=== PATIENT | female | born 1990 | race Caucasian/White ===

== ENCOUNTER 2022-05-24 10:15 | Inpatient (IN) ==
[2022-05-24] MEDS ORDERED: IOPAMIDOL 100 ML BOTTLE IV ONE (10:16)
[2022-05-24] MEDS ORDERED: ONDANSETRON 4 MG/2 ML VIAL IV ONE ×2 (10:23→12:29)
[2022-05-24] MEDS ORDERED: 0.9 % SODIUM CHLORIDE 1,000 ML IV ONE (10:23)
[2022-05-24] MEDS ORDERED: POTASSIUM CHLORIDE 40 MEQ in DEXTROSE 5% IN WATER 500 ML IV ONE (10:44)
[2022-05-24] MEDS ORDERED: POTASSIUM CHLORIDE 20 MEQ TABLET PO ONE (10:44)
[2022-05-24 10:48] LABS: POC Calcium, Ionized 1.03 (1.16-1.32); POC Creatinine 0.8 (0.6-1.2); POC Potassium 2.1 (3.3-5.1)
--- NOTE | 2022-05-24 11:09 | Emergency Department Note ---
Nausea/Vomiting/Diarrhea HPI General Chief complaint: Nausea/Vomiting/Diarrhea Stated complaint: N, V, back pain Time Seen by Provider: 05/24/22 10:18 Source: patient Mode of arrival: ambulatory Limitations: no limitations History of Present Illness HPI Narrative: Narrative: Patient presents ED with complaints of nausea and vomiting x10 days. Patient that she has a history of gastroparesis and she thought it was that which is why she did not go to her PCP. She reports that she has been taking Zofran with no relief of symptoms. She also reports having diarrhea x5 days with about 3 loose stools a day. She is also reporting some lower abdominal pain that has been going on for 7 days. She also reports some back pain And feeling weak.. Overall pain is rated 7/10. She denies fever, chills, shortness of breath, cardiac chest pain, heart palpitations, hematemesis, melena, hematochezia, dysuria, hematuria, urinary frequency, flank pain. She reports she has a history of a tubal ligation so she cannot be . Patient also states she is a multiple a day every day a week marijuana smoker. She also reports history of gastroparesis. Patient denies any other alleviating or aggravating factors. Related Data Home Medications Medication Instructions Recorded Confirmed famotidine 40 mg tablet 40 mg PO QHS 09/03/21 05/24/22 omeprazole 20 mg capsule,delayed 20 mg PO QDAY 09/03/21 05/24/22 release mirtazapine 15 mg tablet 15 mg PO HS 10/29/21 05/24/22 ondansetron 4 mg disintegrating 8 mg PO Q6 PRN Nausea 10/29/21 05/24/22 tablet pregabalin 150 mg capsule 150 mg PO TID 05/24/22 05/24/22 topiramate 25 mg tablet (Topamax) 50 mg PO BID 05/24/22 05/24/22 Previous Rx's Medication Instructions Recorded quetiapine 200 mg tablet 200 mg PO HS #30 tabs 01/28/21 lamotrigine 100 mg tablet 100 mg PO QHS #60 tabs 05/02/21 trazodone 150 mg tablet 150 mg PO QHS #30 tabs 05/07/21 hydrocodone 5 mg-acetaminophen 325 1 tab PO Q8H PRN pain #7 tabs 11/19/21 mg tablet Vortex Spacer #1 ea 01/09/22 albuterol sulfate 90 mcg/actuation 2 puff inhalation Q6H PRN 01/26/22 aerosol inhaler shortness of breath or wheezing #8.5 grams Allergies Allergy/AdvReac Type Severity Reaction Status Date / Time coconut Allergy Unknown Itching Verified 01/09/22 09:38 milk Allergy Unknown Nausea Verified 01/09/22 09:38 mushroom Allergy Unknown Hard time Verified 01/09/22 09:38 breathing haloperidol AdvReac Intermediate Agitated Verified 01/09/22 09:38 metoclopramide [From Reglan] AdvReac Intermediate Agitated Verified 01/09/22 09:38 haloperidol Allergy Unknown Climbing Uncoded 01/09/22 09:38 out of skin Review of Systems ROS ROS Narrative: Narrative: All systems ED: reviewed and negative except as stated. PFSH Narrative Patient History Narrative: Narrative: Medical/Surgical/Family History All Active Problems (Updated 05/24/22 @ 13:32 by Everett Laws DO) Acute hypokalemia (Acute) Leukocytosis (Acute) Cannabis hyperemesis syndrome concurrent with and due to cannabis abuse (Acute) Abdominal pain (Acute) COPD exacerbation (Acute) Current every day vaping (Acute) Asthma exacerbation (Acute) Dental infection (Acute) Tobacco use (Chronic) Cough (Chronic) Dyspnea (Chronic) Chronic obstructive pulmonary disease (Chronic) Asthma (Chronic) Acute hypokalemia (Chronic) Nausea & vomiting (Chronic) Cannabis use disorder, moderate, dependence (Chronic) Stimulant use disorder (Chronic) PTSD (post-traumatic stress disorder) (Chronic) Mood disorder (Chronic) Constipation due to opioid therapy (Chronic) Insomnia (Chronic) Back strain (Chronic) Tobacco use disorder (Chronic) Radiculopathy of lumbar region (Chronic) Lumbago (Chronic) Bilateral lower extremity pain (Chronic) Generalized anxiety disorder (Chronic) Lumbar back pain (Chronic) Rib pain (Chronic) Chest wall pain, chronic (Chronic) Abdominal pain, LUQ (Chronic) Complex regional pain syndrome type II of left lower limb (Chronic) Leukocytosis (Chronic) Calcaneal spur, left (Chronic) Kidney stones (Chronic) Migraines (Chronic) Depression with anxiety (Chronic) Bipolar disorder (Chronic) Plantar fasciitis (Chronic) Tachycardia (Chronic) Hepatic steatosis (Chronic) GERD (gastroesophageal reflux disease) (Chronic) Obesity (BMI 30.0-34.9) (Chronic) Vaginal bleeding (Chronic) Ovarian cyst (Chronic) Hearing loss (Chronic) Exercise-induced asthma (Chronic) Right shoulder pain (Chronic) Costochondritis (Chronic) Persistent recurrent vomiting (Chronic) Rib pain on left side (Chronic) Left foot pain (Chronic) Chronic pain (Chronic) Medical History Abdominal pain, LUQ Acute hypokalemia Asthma Back strain Bilateral lower extremity pain Bipolar disorder Blood on toilet paper Calcaneal spur, left Refer to podiatry Cannabis use disorder, moderate, dependence Chest wall pain, chronic Chronic obstructive pulmonary disease Chronic pain Complex regional pain syndrome type II of left lower limb Constipation due to opioid therapy Costochondritis Depression with anxiety Diarrhea Exercise-induced asthma GERD (gastroesophageal reflux disease) Hearing loss Hepatic steatosis on CT 03-07-2019 History of methadone use Quit 2012 Insomnia Kidney stones x3 removed largest 9mm; seen by urology in [place]. WAS on topiramate (can predispose) - quit approx 2 wks previous to 03-07-2019. Left foot pain Leukocytosis Lumbago Lumbar back pain Migraines Mood disorder Morbid obesity Nausea & vomiting Obesity (BMI 30.0-34.9) Otitis media Ovarian cyst Persistent recurrent vomiting Plantar fasciitis PTSD (post-traumatic stress disorder) Radiculopathy of lumbar region Rib pain on left side Right shoulder pain Stimulant use disorder Tachycardia Patient reports is chronic; causes uncertain or unknown to her... 03/07/2019 Tobacco use disorder Quit 04/2020 Restarted 08/28 Vaginal bleeding Vaginal pain Viral syndrome Weakness of right lower extremity Surgical History History of cholecystectomy (~2021) History of shoulder surgery right History of surgery right Exploratory surgery History of surgical procedure Kidney stone removal, 4 times ureterorenoscopy with fragmentation and removal of calculus of kidney History of tubal ligation 06/2020 tubal removal and nexplanon removal Family History Mother Migraines Heart problem Arthritis Hypertensive disorder Clotting disorder Thyroid disease Grandmother Cerebrovascular accident Maternal Arthritis Maternal Grandfather Arthritis Paternal Alcohol abuse Paternal Cancer Paternal, Maternal Cerebrovascular accident Paternal, Maternal DM (diabetes mellitus) Paternal Heart problem Maternal Clotting disorder Father Depressive disorder Social History Smoking Status: Former smoker and Smokeless tobacco Alcohol Intake Frequency: does not drink Substance Use: marijuana Exam Narrative Narrative: Narrative: General Limitations: no limitations General appearance: Absent in distress ENT ENT: Present normal oropharynx and mucous membranes dry Neck Neck: Present normal inspection; Absent meningismus Respiratory Respiratory: Present normal lung sounds bilaterally; Absent respiratory distress Cardiovascular Cardiovascular: Present normal rhythm and tachycardia Adbominal Abdominal: Present soft, tenderness and normal bowel sounds Expanded Abdominal Abdominal Tenderness: Present RLQ and LLQ Back Back: Present L-S tenderness; Absent CVA tenderness (R) or CVA tenderness (L) Neurological Neurological: Present oriented X3 and normal gait Psychiatric Psychiatric: Present normal affect and normal mood Skin Skin: Present warm (WNL) and intact Course Course Course Narrative: Patient was evaluated for complaints of nausea and vomiting as well as diarrhea and abdominal pain. Patient was tachycardic upon arrival so an EKG was obtained and showed normal sinus rhythm with some PVCs. Urine was obtained and concerning for UTI. Labs were obtained and show the patient had elevated white cell count with leukocytosis. As mentioned she was tachycardic she does meet sepsis criteria. Blood cultures were obtained and patient was given IV fluids as well as IV Rocephin. Patient was given IV Zofran for her nausea and vomiting. Labs also showed that patient was severely hypokalemia with a potassium of 2.1. We will try to give her some oral replacement but patient vomited back up. K rider IV was ordered and is currently running. Patient complained of abdominal pain and she did have some tenderness to palpation in lower abdomen so CT of the abdomen pelvis obtained with image reviewed myself with no acute intra-abdominal findings. There were no sounds of small bowel obstruction or diverticulitis which were considered but ruled out with a CT. Patient is nausea by most likely secondary to her cannabis use which she uses daily. Patient's abdominal pain did not improve with the IV Toradol so she was given some IV morphine and her pain was better controlled. Due to her severe hypokalemia recommend the patient be admitted to the hospitalist service. Case discussed with hospitalist who has agreed to admit the patient. Reevaluation(s) Reevaluation #1: Patient remains hemodynamic stable. No new complaints at this time. Time: 11:20 Consultations Consultation #1: Case discussed with hospitalist, Dr. Yip, who has agreed to admit the p atient Time: 13:25 Vital Signs Vital signs: Vital Signs Temperature 96.9 F L 05/24/22 10:18 Pulse Rate 106 H 05/24/22 10:18 Respiratory Rate 20 05/24/22 10:18 Blood Pressure 117/80 05/24/22 10:18 Pulse Oximetry (%) 97 05/24/22 10:18 Oxygen Delivery Method Room Air 05/24/22 10:18 Temperature 98.0 F 05/24/22 11:00 Pulse Rate 100 H 05/24/22 13:07 Respiratory Rate 19 05/24/22 13:07 Blood Pressure 100/64 05/24/22 13:03 Pulse Oximetry (%) 100 05/24/22 13:07 Oxygen Delivery Method Room Air 05/24/22 13:03 MDM MDM Narrative Medical decision making narrative: Narrative: Differential Diagnosis Differential Diagnosis: Dehydration, viral illness, electrolyte imbalance Medical Records Medical records reviewed: Yes I reviewed the patient's medical records. Lab Data Lab results reviewed: Yes I reviewed the patient's lab results. 05/24/22 10:34 Labs: Lab Results 05/24/22 05/24/22 05/24/22 Range/Units 10:05 10:34 10:34 WBC 16.4 H (4.5-11.0) K/mcL RBC 5.11 (3.59-5.38) M/mcL Hgb 15.8 H (11.2-15.7) g/dL Hct 44.2 (34.1-44.9) % POC Hct (36-48) MCV 86.5 (80.0-100.0) fL MCH 30.9 (26.0-34.0) pg MCHC 35.7 (31.0-36.0) g/dL RDW 12.3 (11.5-14.5) % Plt Count 335 (140-440) K/mcL MPV 10.4 (8.8-12.5) fL Immature Gran % (Auto) 0.4 (0.0-0.5) % Neut % (Auto) 67.3 (38.0-78.0) % Lymph % (Auto) 24.9 (15.5-49.0) % Potter % (Auto) 6.3 (1.0-12.0) % Eos % (Auto) 0.7 (0.0-7.0) % Baso % (Auto) 0.4 (0.0-2.0) % Lymph # (Auto) 4.08 (1.50-4.80) K/mcL Potter # (Auto) 1.03 H (0.10-0.90) K/mcL Eos # (Auto) 0.11 (0.00-0.70) K/mcL Baso # (Auto) 0.06 (0.00-0.30) K/mcL Immature Gran # 0.07 H (0.00-0.05) K/mcl Absolute Neutrophils 11.02 H (1.80-8.00) K/mcL POC VBG pH (7.32-7.42) POC VBG pCO2 at Temp (41-51) POC VBG pO2 (25-40) POC VBG HCO3 (24-28) POC VBG Total CO2 (25-29) POC Venous O2 Sat (40-70) POC VBG Base Excess (-2-2) VBG Lactic Acid (0.5-2) POC Sodium (133-145) POC Potassium (3.3-5.1) POC Chloride (96-108) POC Total CO2 (22-30) POC BUN (6-20) POC Creatinine (0.6-1.2) POC Glucose (70-105) POC WB Ioniz Calcium (1.16-1.32) Magnesium (1.6-2.5) mg/dL Total Bilirubin 0.6 (0.1-1.0) mg/dL Direct Bilirubin < 0.2 (0-0.3) mg/dL AST 20 (<32) U/L ALT 21 (<40) U/L Alkaline Phosphatase 89 (39-117) U/L Total Protein 7.8 (5.9-8.4) gm/dL Albumin 5.2 (3.2-5.2) gm/dL Globulin 2.6 (2.2-3.7) gm/dL Urine Color Amie Urine Appearance Cloudy A (Clear) Urine pH 7.0 (5.0-9.0) Ur Specific [place] 1.032 (1.000-1.035) Urine Protein >=500 A (Negative) mg/dL Urine Glucose (UA) Negative (Negative) mg/dL Urine Ketones 20 A (Negative) mg/dL Urine Occult Blood Negative (Negative) mg/dL Urine Nitrate Negative (Negative) Urine Bilirubin Negative (Negative) mg/dL Urine Urobilinogen 2.0 A mg/dL Ur Leukocyte Esterase 75 A (Negative) /uL Urine RBC 7 H (0-3) /hpf Urine WBC 73 H (0-4) /hpf Ur Squamous Epith Cells 99 H (0-4) /hpf Ur Transition Epith Cell 1 (0-2) /hpf Urine Bacteria Few A (0) /hpf Hyaline Casts 375 H (0-2) /lph Urine Mucus Many A (None) /hpf Ur Culture Indicated? No 05/24/22 05/24/22 05/24/22 Range/Units 10:34 10:35 10:42 WBC (4.5-11.0) K/mcL RBC (3.59-5.38) M/mcL Hgb (11.2-15.7) g/dL Hct (34.1-44.9) % POC Hct 51.0 H (36-48) MCV (80.0-100.0) fL MCH (26.0-34.0) pg MCHC (31.0-36.0) g/dL RDW (11.5-14.5) % Plt Count (140-440) K/mcL MPV (8.8-12.5) fL Immature Gran % (Auto) (0.0-0.5) % Neut % (Auto) (38.0-78.0) % Lymph % (Auto) (15.5-49.0) % Potter % (Auto) (1.0-12.0) % Eos % (Auto) (0.0-7.0) % Baso % (Auto) (0.0-2.0) % Lymph # (Auto) (1.50-4.80) K/mcL Potter # (Auto) (0.10-0.90) K/mcL Eos # (Auto) (0.00-0.70) K/mcL Baso # (Auto) (0.00-0.30) K/mcL Immature Gran # (0.00-0.05) K/mcl Absolute Neutrophils (1.80-8.00) K/mcL POC VBG pH 7.50 H (7.32-7.42) POC VBG pCO2 at Temp 30.7 L (41-51) POC VBG pO2 49 H (25-40) POC VBG HCO3 24.1 (24-28) POC VBG Total CO2 25.0 (25-29) POC Venous O2 Sat 88.0 H (40-70) POC VBG Base Excess 1.0 (-2-2) VBG Lactic Acid 1.9 (0.5-2) POC Sodium 138 (133-145) POC Potassium 2.1 L* (3.3-5.1) POC Chloride 99 (96-108) POC Total CO2 22.0 (22-30) POC BUN 7 (6-20) POC Creatinine 0.8 (0.6-1.2) POC Glucose 146 H (70-105) POC WB Ioniz Calcium 1.03 L (1.16-1.32) Magnesium 1.9 (1.6-2.5) mg/dL Total Bilirubin (0.1-1.0) mg/dL Direct Bilirubin (0-0.3) mg/dL AST (<32) U/L ALT (<40) U/L Alkaline Phosphatase (39-117) U/L Total Protein (5.9-8.4) gm/dL Albumin (3.2-5.2) gm/dL Globulin (2.2-3.7) gm/dL Urine Color Urine Appearance (Clear) Urine pH (5.0-9.0) Ur Specific [place] (1.000-1.035) Urine Protein (Negative) mg/dL Urine Glucose (UA) (Negative) mg/dL Urine Ketones (Negative) mg/dL Urine Occult Blood (Negative) mg/dL Urine Nitrate (Negative) Urine Bilirubin (Negative) mg/dL Urine Urobilinogen mg/dL Ur Leukocyte Esterase (Negative) /uL Urine RBC (0-3) /hpf Urine WBC (0-4) /hpf Ur Squamous Epith Cells (0-4) /hpf Ur Transition Epith Cell (0-2) /hpf Urine Bacteria (0) /hpf Hyaline Casts (0-2) /lph Urine Mucus (None) /hpf Ur Culture Indicated? EKG Data EKG #1: EKG attestation: Yes I reviewed and interpreted this EKG. EKG shows normal: sinus rhythm Rate: normal Rhythm: NSR and PVC's Eidson/QRS: normal P waves: LAE Heart block present: None ST segment elevation in: None ST segment depression in: None QTc: normal QRS morphology: Present normal Interpretation: no acute changes Core Measures AMI Core Measures Followed: Yes Discharge Plan Patient/Caregiver Discharge Instructions Pt seen by [facility]/PA only: No Clinical Impression: Acute hypokalemia, Leukocytosis, Cannabis hyperemesis syndrome concurrent with and due to cannabis abuse, Abdominal pain Patient Disposition: Xfer As Outpt/Obs ([facility]) Condition: Fair Follow up with: Beata Damon NP-C [Primary Care Provider] - Prescriptions: No Action quetiapine 200 mg tablet 200 mg PO HS Qty: 30 2RF Rx Instructions: TAKE ONE TABLET BY MOUTH AT BEDTIME DAILY lamotrigine 100 mg tablet 100 mg PO QHS Qty: 60 0RF trazodone 150 mg tablet 150 mg PO QHS Qty: 30 2RF albuterol sulfate 90 mcg/actuation HFA aerosol inhaler 2 puff inhalation Q6H PRN (Reason: shortness of breath or wheezing) Qty: 8.5 12RF Trelegy Ellipta 200-62.5-25 mcg blister with device 1 inh inhalation QDAY 0RF omeprazole 20 mg capsule,delayed release(DR/EC) 20 mg PO QDAY famotidine 40 mg tablet 40 mg PO QHS mirtazapine 15 mg tablet 15 mg PO HS ondansetron 4 mg tablet,disintegrating 8 mg PO Q6 PRN (Reason: Nausea) (DME) Vortex Spacer See Rx Instructions .ROUTE .MEDSUPPLY Qty: 1 0RF Rx Instructions: As directed hydrocodone-acetaminophen 5-325 mg tablet 1 tab PO Q8H PRN (Reason: pain) Qty: 7 0RF topiramate [Topamax] 25 mg tablet 50 mg PO BID pregabalin 150 mg capsule 150 mg PO TID
[2022-05-24 11:17] LABS: Basophils # (Auto) 0.06 K/mcL (0.00-0.30); Basophils % (Auto) 0.4 % (0.0-2.0); Eosinophils # (Auto) 0.11 K/mcL (0.00-0.70); Eosinophils % (Auto) 0.7 % (0.0-7.0); Hematocrit 44.2 % (34.1-44.9); Hemoglobin 15.8 g/dL (11.2-15.7); Lymphocytes # (Auto) 4.08 K/mcL (1.50-4.80); Lymphocytes % (Auto) 24.9 % (15.5-49.0); Mean Cell Volume 86.5 fL (80.0-100.0); Mean Corpuscular HGB Conc 35.7 g/dL (31.0-36.0); Mean Platelet Volume 10.4 fL (8.8-12.5); Monocytes # (Auto) 1.03 K/mcL (0.10-0.90); Monocytes % (Auto) 6.3 % (1.0-12.0); Neutrophils % (Auto) 67.3 % (38.0-78.0); Platelet Count 335 K/mcL (140-440); RBC 5.11 M/mcL (3.59-5.38); Red Cell Distribution Width 12.3 % (11.5-14.5); WBC 16.4 K/mcL (4.5-11.0)
[2022-05-24] MEDS ORDERED: KETOROLAC 30 MG/ML VIAL IV ONE (11:31)
[2022-05-24 11:39] LABS: ALT/SGPT 21 U/L (<40); AST/SGOT 20 U/L (<32); Albumin 5.2 gm/dL (3.2-5.2); Alkaline Phosphatase 89 U/L (39-117); Bilirubin,Direct < 0.2 mg/dL (0-0.3); Bilirubin,Total 0.6 mg/dL (0.1-1.0); Globulin 2.6 gm/dL (2.2-3.7)
[2022-05-24 12:22] LABS: Appearance,Urine CLOUDY (Clear); Bacteria,Urine FEW /hpf (0); Bilirubin,Urine Negative (Negative); Color,Urine AMBER; Culture Indicated,Urine No; Glucose,Urine (UA) Negative (Negative); Ketones,Urine 20 mg/dL (Negative); Leukocyte Esterase,Urine 75 /uL (Negative); Mucus,Urine MANY /hpf; Nitrate,Urine Negative (Negative); Protein,Urine >=500 mg/dL (Negative); Specific Gravity,Urine 1.032 (1.000-1.035); Urine Blood Negative (Negative); Urine Hyaline Cast 375 /lph (0-2); Urine RBC 7 /hpf (0-3); Urine Squamous Epithelial Cell 99 /hpf (0-4); Urine Transitional Epi Cells 1 /hpf (0-2); Urine WBC 73 /hpf (0-4)
[2022-05-24] MEDS ORDERED: cefTRIAXone 2 GM in DEXTROSE 5% IN WATER 50 ML IV ONE (12:29)
--- NOTE | 2022-05-24 12:51 | Cat Scan Report ---
CLINICAL INFORMATION: Abdominal pain COMPARISON: Abdomen and pelvic CT 10/24/2020. TECHNIQUE: Following enteric contrast, 80 cc of Isovue-370 were injected intravenously, and 60 seconds later, 0.625 mm helical slices were obtained from the mid heart through the subtrochanteric regions. Following reconstruction, 2.5 mm sagittal, coronal and axial reformatted images were processed and reviewed at bone, lung and soft tissue windows. Five minutes later, 0.625 mm helical slices were obtained from the mid heart through the kidneys and viewed at soft tissue windows.The exam was performed using radiation dose optimization techniques including, but not limited to, automated exposure control, adjustment of the mA and/or kV according to patient size and use of iterative reconstruction technique. FINDINGS: The lung bases are clear. No effusions. The visualized heart is grossly normal. Abdominal images show mild fatty change within the liver but no focal hepatic lesion. The gallbladder and bile ducts, both kidneys, adrenal glands, spleen, pancreas and aorta, including aortic branches, are normal in size, configuration and attenuation without focal lesion. There is no free air, free fluid or adenopathy. Pelvic images show normal urinary bladder. Uterus and both ovaries are normal in size, configuration and attenuation. 11 mm simple cyst is seen on the right ovary. The stomach, small bowel, inferior pericecal appendix and large bowel are grossly normal. Bone windows show no osseous abnormality IMPRESSION: Mild stable fatty change within the liver. No acute findings Interpreted and Authenticated by: Taz Byrd 05/24/22
--- NOTE | 2022-05-24 13:22 | XRay Report ---
CLINICAL INFORMATION: Cough COMPARISON: 12/01/2021 TECHNIQUE: Portable FINDINGS: The heart size, mediastinum and pulmonary vessels are unremarkable. The lungs are clear. There are no effusions. The bones and soft tissues are within normal limits. IMPRESSION: Normal chest. Interpreted and Authenticated by: Taz Byrd 05/24/22
[2022-05-24] MEDS ORDERED: morphine 2 MG/ML VIAL IV ONE ×2 (13:29→16:07)
--- NOTE | 2022-05-24 13:41 | Internal Med History&Physical ---
HPI History of Present Illness Patient information: Note initiated : 05/24/22 at 1:30 pm Service Date, if different from initiated Date: [] Patient: Eunice Griffin 31 y/o F admitted on for N, V, back pain. Chief Complaint: [] History of present illness: Ms. Griffin is a 31 year old F Presents to the ER with nausea vomiting diarrhea. She has had nausea vomiting for about 10 days and diarrhea for about a week. Patient has a history of gastroparesis cyclic vomiting syndrome as well as daily marijuana use. She says she is refrain from marijuana to see if it would make a difference with her vomiting but she says it did not make a difference. In the ER her potassium was 2.1 and she was given first oral to placement to see if she would tolerate it but she vomited up. And she was given IV replacement. Her urine was concerning for infection and thus cultures and antibiotics were obtained. She has not had any diarrhea since the ED. She has her last episode of diarrhea was this morning and it was a white-yellow watery fluid. She has some lower quadrant abdominal pain which is crampy. She also complains planes of alternating sweats and chills Flu and COVID were negative in the ED. Patient felt it was her gastroparesis as it started similar but lasted longer than her typical timeframe and thus she came into the ED. She quit smoking 6 months ago but vapes now. Review of Systems: Pertinent positives as above. Denies headache/fever//chest pain/cough/dyspnea/. Remaining 10 point review of system reviewed negative PHYSICAL EXAM General: Alert, Awake, No acute Distress, obese Eyes/N/T: EOMI, no scleral icterus, PERRL, MM Head/Neck: neck supple, full ROM, normocephalic atraumatic CV: Mildly tacky but regular , No murmurs, normal s1/s2 Pulm: Clear b/l, no wheezing/rhonchi/rales, no respiratory distress Abd: soft, nontender, +BS x4 Ext: no clubbing/cyanosis/edema, nontender Neuro: Alert, no focal deficits, moves all extremities, CN 2-12 grossly intact, sensations intact b/l upper/lower Psychiatric: Skin: warm/dry, normal color PFSH PFSH All Active Problems (Updated 05/24/22 @ 13:32 by Everett Laws DO) Acute hypokalemia (Acute) Leukocytosis (Acute) Cannabis hyperemesis syndrome concurrent with and due to cannabis abuse (Acute) Abdominal pain (Acute) COPD exacerbation (Acute) Current every day vaping (Acute) Asthma exacerbation (Acute) Dental infection (Acute) Tobacco use (Chronic) Cough (Chronic) Dyspnea (Chronic) Chronic obstructive pulmonary disease (Chronic) Asthma (Chronic) Acute hypokalemia (Chronic) Nausea & vomiting (Chronic) Cannabis use disorder, moderate, dependence (Chronic) Stimulant use disorder (Chronic) PTSD (post-traumatic stress disorder) (Chronic) Mood disorder (Chronic) Constipation due to opioid therapy (Chronic) Insomnia (Chronic) Back strain (Chronic) Tobacco use disorder (Chronic) Radiculopathy of lumbar region (Chronic) Lumbago (Chronic) Bilateral lower extremity pain (Chronic) Generalized anxiety disorder (Chronic) Lumbar back pain (Chronic) Rib pain (Chronic) Chest wall pain, chronic (Chronic) Abdominal pain, LUQ (Chronic) Complex regional pain syndrome type II of left lower limb (Chronic) Leukocytosis (Chronic) Calcaneal spur, left (Chronic) Kidney stones (Chronic) Migraines (Chronic) Depression with anxiety (Chronic) Bipolar disorder (Chronic) Plantar fasciitis (Chronic) Tachycardia (Chronic) Hepatic steatosis (Chronic) GERD (gastroesophageal reflux disease) (Chronic) Obesity (BMI 30.0-34.9) (Chronic) Vaginal bleeding (Chronic) Ovarian cyst (Chronic) Hearing loss (Chronic) Exercise-induced asthma (Chronic) Right shoulder pain (Chronic) Costochondritis (Chronic) Persistent recurrent vomiting (Chronic) Rib pain on left side (Chronic) Left foot pain (Chronic) Chronic pain (Chronic) Medical History Abdominal pain, LUQ Acute hypokalemia Asthma Back strain Bilateral lower extremity pain Bipolar disorder Blood on toilet paper Calcaneal spur, left Refer to podiatry Cannabis use disorder, moderate, dependence Chest wall pain, chronic Chronic obstructive pulmonary disease Chronic pain Complex regional pain syndrome type II of left lower limb Constipation due to opioid therapy Costochondritis Depression with anxiety Diarrhea Exercise-induced asthma GERD (gastroesophageal reflux disease) Hearing loss Hepatic steatosis on CT 03-07-2019 History of methadone use Quit 2012 Insomnia Kidney stones x3 removed largest 9mm; seen by urology in [place]. WAS on topiramate (can predispose) - quit approx 2 wks previous to 03-07-2019. Left foot pain Leukocytosis Lumbago Lumbar back pain Migraines Mood disorder Morbid obesity Nausea & vomiting Obesity (BMI 30.0-34.9) Otitis media Ovarian cyst Persistent recurrent vomiting Plantar fasciitis PTSD (post-traumatic stress disorder) Radiculopathy of lumbar region Rib pain on left side Right shoulder pain Stimulant use disorder Tachycardia Patient reports is chronic; causes uncertain or unknown to her... 03/07/2019 Tobacco use disorder Quit 04/2020 Restarted 08/28 Vaginal bleeding Vaginal pain Viral syndrome Weakness of right lower extremity Surgical History History of cholecystectomy (~2021) History of shoulder surgery right History of surgery right Exploratory surgery History of surgical procedure Kidney stone removal, 4 times ureterorenoscopy with fragmentation and removal of calculus of kidney History of tubal ligation 06/2020 tubal removal and nexplanon removal Family History Mother Migraines Heart problem Arthritis Hypertensive disorder Clotting disorder Thyroid disease Grandmother Cerebrovascular accident Maternal Arthritis Maternal Grandfather Arthritis Paternal Alcohol abuse Paternal Cancer Paternal, Maternal Cerebrovascular accident Paternal, Maternal DM (diabetes mellitus) Paternal Heart problem Maternal Clotting disorder Father Depressive disorder Social History adopted: Yes caregiver/support person: No foster care: No household members: family housing: house lives independently: Yes marital status: education level: high school service: No fci: No occupational status: previously employed occupation: AfterYes occupational exposures/hazards: No pets and animals: Yes pets and animals: dog(s) leisure activities: other hx recent travel: No sexually active: No smoking status: Former smoker and Smokeless tobacco Smokeless tobacco user details: vaping quit status: considering quitting alcohol intake frequency: does not drink substance use type: marijuana counseling given: Yes counseling provided: provider counseling additional history: CBD more than THC MEDS/ALLERGIES Home Medications and Allergies Home Medications Medication Instructions Recorded Confirmed Type quetiapine 200 mg tablet 200 mg PO HS #30 tabs 01/28/21 05/24/22 Rx lamotrigine 100 mg tablet 100 mg PO QHS #60 tabs 05/02/21 05/24/22 Rx trazodone 150 mg tablet 150 mg PO QHS #30 tabs 05/07/21 05/24/22 Rx famotidine 40 mg tablet 40 mg PO QHS 09/03/21 05/24/22 History omeprazole 20 mg capsule,delayed 20 mg PO QDAY 09/03/21 05/24/22 History release mirtazapine 15 mg tablet 15 mg PO HS 10/29/21 05/24/22 History ondansetron 4 mg disintegrating 8 mg PO Q6 PRN Nausea 10/29/21 05/24/22 History tablet hydrocodone 5 mg-acetaminophen 325 1 tab PO Q8H PRN pain #7 tabs 11/19/21 05/24/22 Rx mg tablet Vortex Spacer #1 ea 01/09/22 05/24/22 Rx albuterol sulfate 90 mcg/actuation 2 puff inhalation Q6H PRN 01/26/22 05/24/22 Rx aerosol inhaler shortness of breath or wheezing #8.5 grams pregabalin 150 mg capsule 150 mg PO TID 05/24/22 05/24/22 History topiramate 25 mg tablet (Topamax) 50 mg PO BID 05/24/22 05/24/22 History Allergies Allergy/AdvReac Type Severity Reaction Status Date / Time coconut Allergy Unknown Itching Verified 01/09/22 09:38 milk Allergy Unknown Nausea Verified 01/09/22 09:38 mushroom Allergy Unknown Hard time Verified 01/09/22 09:38 breathing haloperidol AdvReac Intermediate Agitated Verified 01/09/22 09:38 metoclopramide [From Reglan] AdvReac Intermediate Agitated Verified 01/09/22 09:38 haloperidol Allergy Unknown Climbing Uncoded 01/09/22 09:38 out of skin EXAM Constitutional Vitals: Temp Pulse Resp BP Pulse Ox O2 Del Method 98.0 F 100 H 19 100/64 100 Room Air 05/24/22 11:00 05/24/22 13:07 05/24/22 13:07 05/24/22 13:03 05/24/22 13:07 05/24/22 13:03 DATA Data Completed and Pending Labs: Labs from last 24 hours 04/16/23 04/16/23 04/16/23 10:42 10:35 10:35 WBC RBC Hgb Hct POC Hct 51.0 H MCV MCH MCHC RDW Plt Count MPV Immature Gran % (Auto) Neut % (Auto) Lymph % (Auto) [place] % (Auto) Eos % (Auto) Baso % (Auto) Lymph # (Auto) [place] # (Auto) Eos # (Auto) Baso # (Auto) Immature Gran # Absolute Neutrophils POC VBG pH POC VBG pCO2 at Temp POC VBG pO2 POC VBG HCO3 POC VBG Total CO2 POC Venous O2 Sat POC VBG Base Excess VBG Lactic Acid POC Sodium 138 POC Potassium 2.1 L* POC Chloride 99 POC Total CO2 22.0 POC BUN 7 POC Creatinine 0.8 POC Glucose 146 H POC WB Ioniz Calcium 1.03 L Magnesium 1.9 Total Bilirubin Direct Bilirubin AST ALT Alkaline Phosphatase Total Protein Albumin Globulin Procalcitonin Pending Urine Color Urine Appearance Urine pH Ur Specific [place] Urine Protein Urine Glucose (UA) Urine Ketones Urine Occult Blood Urine Nitrate Urine Bilirubin Urine Urobilinogen Ur Leukocyte Esterase Urine RBC Urine WBC Ur Squamous Epith Cells Ur Transition Epith Cell Urine Bacteria Hyaline Casts Urine Mucus Ur Culture Indicated? 05/24/22 05/24/22 05/24/22 10:34 10:34 10:34 WBC 16.4 H RBC 5.11 Hgb 15.8 H Hct 44.2 POC Hct MCV 86.5 MCH 30.9 MCHC 35.7 RDW 12.3 Plt Count 335 MPV 10.4 Immature Gran % (Auto) 0.4 Neut % (Auto) 67.3 Lymph % (Auto) 24.9 [place] % (Auto) 6.3 Eos % (Auto) 0.7 Baso % (Auto) 0.4 Lymph # (Auto) 4.08 [place] # (Auto) 1.03 H Eos # (Auto) 0.11 Baso # (Auto) 0.06 Immature Gran # 0.07 H Absolute Neutrophils 11.02 H POC VBG pH 7.50 H POC VBG pCO2 at Temp 30.7 L POC VBG pO2 49 H POC VBG HCO3 24.1 POC VBG Total CO2 25.0 POC Venous O2 Sat 88.0 H POC VBG Base Excess 1.0 VBG Lactic Acid 1.9 POC Sodium POC Potassium POC Chloride POC Total CO2 POC BUN POC Creatinine POC Glucose POC WB Ioniz Calcium Magnesium Total Bilirubin 0.6 Direct Bilirubin < 0.2 AST 20 ALT 21 Alkaline Phosphatase 89 Total Protein 7.8 Albumin 5.2 Globulin 2.6 Procalcitonin Urine Color Urine Appearance Urine pH Ur Specific [place] Urine Protein Urine Glucose (UA) Urine Ketones Urine Occult Blood Urine Nitrate Urine Bilirubin Urine Urobilinogen Ur Leukocyte Esterase Urine RBC Urine WBC Ur Squamous Epith Cells Ur Transition Epith Cell Urine Bacteria Hyaline Casts Urine Mucus Ur Culture Indicated? 05/24/22 10:05 WBC RBC Hgb Hct POC Hct MCV MCH MCHC RDW Plt Count MPV Immature Gran % (Auto) Neut % (Auto) Lymph % (Auto) [place] % (Auto) Eos % (Auto) Baso % (Auto) Lymph # (Auto) [place] # (Auto) Eos # (Auto) Baso # (Auto) Immature Gran # Absolute Neutrophils POC VBG pH POC VBG pCO2 at Temp POC VBG pO2 POC VBG HCO3 POC VBG Total CO2 POC Venous O2 Sat POC VBG Base Excess VBG Lactic Acid POC Sodium POC Potassium POC Chloride POC Total CO2 POC BUN POC Creatinine POC Glucose POC WB Ioniz Calcium Magnesium Total Bilirubin Direct Bilirubin AST ALT Alkaline Phosphatase Total Protein Albumin Globulin Procalcitonin Urine Color Amie Urine Appearance Cloudy A Urine pH 7.0 Ur Specific [place] 1.032 Urine Protein >=500 A Urine Glucose (UA) Negative Urine Ketones 20 A Urine Occult Blood Negative Urine Nitrate Negative Urine Bilirubin Negative Urine Urobilinogen 2.0 A Ur Leukocyte Esterase 75 A Urine RBC 7 H Urine WBC 73 H Ur Squamous Epith Cells 99 H Ur Transition Epith Cell 1 Urine Bacteria Few A Hyaline Casts 375 H Urine Mucus Many A Ur Culture Indicated? No A/P Narrative A/P Narrative: A: *Hypokalemia, severe: *N/V/D: cyclic vomiting vs gastroparessis vs marijuana hyperemesis *h/o cyclic vominting/Gastroparesis/cannabis use daily *Leukocytosis appears chronic: Likely acute component from N/V *?UTI: *COPD(no home O2): *Obesity: BMI 36, lifestyle modification *GERD: *Fatty liver: *Depression/Anxiety/PTSD/Bipolar *Chronic pain: P: -IV potassium replacement and trend -Antiemetics/capsaicin -repeat clean catch UA -stool studies -NPO, IVF's -home IH's -Continue psych meds -PT/OT -ppx: Lovenox / home ppi Time Spent With Patient Time: Total time spent is greater than 50% in coordination of care (as documented) at patient's floor/unit and/or counseling patient: Initial: Total time with patient: 75 - 90 minutes
[2022-05-24] MEDS ORDERED: IPRATROPIUM/ALBUTEROL 3 ML AMPUL.NEB NEB PRN (15:43)
[2022-05-24] MEDS ORDERED: POTASSIUM CHLORIDE 20 MEQ TABLET PO PRN (15:43)
[2022-05-24] MEDS ORDERED: ACETAMINOPHEN 325 MG TABLET PO PRN (15:43)
[2022-05-24] MEDS ORDERED: MAGNESIUM SULFATE 2 GM/50 ML BAG IV PRN (15:43)
[2022-05-24] MEDS ORDERED: METOCLOPRAMIDE 10 MG/2 ML VIAL IV PRN (15:43)
[2022-05-24] MEDS ORDERED: CAPSAICIN 0.025% CREAM.TOP 60GM TOPICAL PRN (15:43)
[2022-05-24] MEDS ORDERED: ONDANSETRON 4 MG/2 ML VIAL ONE (15:48)
[2022-05-24] MEDS ORDERED: HYDROcodone/APAP 5/325MG TABLET PO ONE (15:50)
[2022-05-24] MEDS: ONDANSETRON 4 MG/2 ML VIAL IV PRN (15:57)
[2022-05-24] MEDS: DEXTROSE 5%-1/2NS 1,000 ML IV SCH (15:58)
[2022-05-24] MEDS: 0.9 % SODIUM CHLORIDE 10 ML SYRINGE IV SCH ×2 (16:11→21:33)
[2022-05-24] MEDS: PREGABALIN 150 MG CAPSULE PO SCH ×2 (16:11→21:32)
[2022-05-24 16:13] LABS: POC Calcium, Ionized 1.09 (1.16-1.32); POC Creatinine 0.7 (0.6-1.2); POC Potassium 2.5 (3.3-5.1)
[2022-05-24] MEDS ORDERED: POTASSIUM CHLORIDE 20 MEQ/10 ML VIAL IV ONE (16:49)
[2022-05-24] MEDS ORDERED: morphine 2 MG/ML VIAL ONE (16:54)
[2022-05-24] MEDS: POTASSIUM CHLORIDE 40 MEQ in DEXTROSE 5% IN WATER 500 ML IV PRN (16:59)
[2022-05-24] MEDS: FAMOTIDINE 20 MG TABLET PO SCH (19:50)
[2022-05-24] MEDS: PROMETHAZINE 25 MG/ML VIAL IV PRN (20:15)
[2022-05-24 20:25] LABS: Appearance,Urine HAZY (Clear); Bilirubin,Urine Negative (Negative); Color,Urine YELLOW; Culture Indicated,Urine No; Glucose,Urine (UA) Negative (Negative); Ketones,Urine Negative (Negative); Leukocyte Esterase,Urine 250 /uL (Negative); Nitrate,Urine Negative (Negative); Protein,Urine Negative (Negative); Specific Gravity,Urine 1.011 (1.000-1.035); Urine Blood Negative (Negative); Urine RBC 5 /hpf (0-3); Urine Squamous Epithelial Cell 27 /hpf (0-4); Urine WBC 3 /hpf (0-4); Urobilinogen,Urine Negative
[2022-05-24] MEDS: TOPIRAMATE 25 MG TABLET PO SCH (21:32)
[2022-05-24] MEDS: MIRTAZAPINE 15 MG TABLET PO SCH (21:32)
[2022-05-24] MEDS: QUEtiapine 100 MG TABLET PO SCH (21:32)
[2022-05-24] MEDS: lamoTRIgine 100 MG TABLET PO SCH (21:32)
[2022-05-24] MEDS: traZODone HCL 150 MG TABLET PO SCH (21:32)
[2022-05-24] MEDS: HYDROcodone/APAP 5/325MG TABLET PO PRN (22:31)
[2022-05-25] MEDS: DEXTROSE 5%-1/2NS 1,000 ML IV SCH (04:43)
[2022-05-25] MEDS: 0.9 % SODIUM CHLORIDE 10 ML SYRINGE IV SCH ×3 (05:59→22:57)
[2022-05-25 06:44] LABS: Hematocrit 37.1 % (34.1-44.9); Hemoglobin 12.9 g/dL (11.2-15.7); Mean Cell Volume 88.8 fL (80.0-100.0); Mean Corpuscular HGB Conc 34.8 g/dL (31.0-36.0); Mean Platelet Volume 10.1 fL (8.8-12.5); Platelet Count 223 K/mcL (140-440); RBC 4.18 M/mcL (3.59-5.38); Red Cell Distribution Width 12.7 % (11.5-14.5); WBC 7.4 K/mcL (4.5-11.0)
[2022-05-25 07:09] LABS: ALT/SGPT 17 U/L (<40); AST/SGOT 19 U/L (<32); Albumin/Globulin Ratio 2.1 (1.0-2.3); Alkaline Phosphatase 65 U/L (39-117); Bilirubin,Direct < 0.2 mg/dL (0-0.3); Bilirubin,Total 0.4 mg/dL (0.1-1.0); Blood Urea Nitrogen 4 mg/dL (6-20); Calcium 8.3 mg/dL (8.6-10.4); Carbon Dioxide 23 mmol/L (22-30); Chloride 105 mmol/L (96-108); Globulin 1.9 gm/dL (2.2-3.7); Glomerular Filtration Rate 97; Glucose 89 mg/dL (70-105); Lactate Dehydrogenase 175 U/L (135-225); Phosphorous 2.7 mg/dL (2.5-4.5); Triglycerides 168 mg/dL (<150); Uric Acid 7.5 mg/dL (2.5-8.0)
--- NOTE | 2022-05-25 07:13 | EKG ---
[facility] Test Date: 2022-05-24 Pat Name: Eunice Griffin Department: ED Room: Gender: Female Rn Traveling: BARI : 1990 Requested By: Everett Laws Order Number: [id number] Reading MD: Taz Dickerson M.D. Measurements Intervals [place] Rate: 94 P: 79 SD: 159 QRS: 75 QRSD: 101 T: 70 QT: 407 QTc: 491 Interpretive Statements Sinus rhythm Ventricular premature complex Probable left atrial enlargement Electronically Signed On 05-25-2022 7:13:17 PDT by Taz Dickerson M.D. /store/M0/[id number]/[id number]
[2022-05-25] MEDS: POTASSIUM CHLORIDE 40 MEQ in DEXTROSE 5% IN WATER 500 ML IV PRN (07:38)
--- NOTE | 2022-05-25 07:45 | Internal Med Progress Note ---
SUBJECTIVE Subjective Patient information: Note initiated : 05/25/22 at 7:40 am Service Date, if different from initiated Date: [] Patient: Eunice Griffin 31 y/o F admitted on 05/24/22 for N, V, back pain. Chief Complaint: [] Interval history: History of present illness: Ms. Griffin is a 31 year old F Presents to the ER with nausea vomiting diarrhea. She has had nausea vomiting for about 10 days and diarrhea for about a week. Patient has a history of gastroparesis cyclic vomiting syndrome as well as daily marijuana use. She says she is refrain from marijuana to see if it would make a difference with her vomiting but she says it did not make a difference. In the ER her potassium was 2.1 and she was given first oral to placement to see if she would tolerate it but she vomited up. And she was given IV replacement. Her urine was concerning for infection and thus cultures and antibiotics were obtained. She has not had any diarrhea since the ED. She has her last episode of diarrhea was this morning and it was a white-yellow watery fluid. She has some lower quadrant abdominal pain which is crampy. She also complains planes of alternating sweats and chills Flu and COVID were negative in the ED. Patient felt it was her gastroparesis as it started similar but lasted longer than her typical timeframe and thus she came into the ED. She quit smoking 6 months ago but vapes now. 05/25 Minimal nausea. No vomiting. No diarrhea since admission. Hypokalemia still present and significant. Leukocytosis likely reactive resolved. Continue potassium repletion and trend. Stool studies still pending. Review of Systems: Pertinent positives as above. Denies headache/fever//chest pain/cough/dyspnea/. PHYSICAL EXAM General: Alert, Awake, No acute Distress, obese Eyes/N/T: EOMI, no scleral icterus, Head/Neck: neck supple, full ROM, CV: RRR, No murmurs, Pulm: Clear b/l, no wheezing/rhonchi/rales, no respiratory distress Abd: soft, nontender, +BS x4 Ext: no clubbing/cyanosis/edema, nontender Neuro: Alert, no focal deficits, moves all extremities, , sensations intact b/l upper/lower Psychiatric: Skin: warm/dry, normal color Constitutional Vitals: Vital Signs Temp Pulse Resp BP Pulse Ox O2 Del Method O2 Flow Rate 97.1 F 72 18 109/71 99 Room Air 0 05/25/22 05:35 05/24/22 20:40 05/25/22 05:35 05/25/22 05:35 05/25/22 05:35 05/25/22 05:35 05/25/22 05:35 Period Temp Pulse Resp BP Sys/Mccall Pulse Ox O2 Del Method O2 Flow Rate Last 24 Hr 96.9 F-98.0 F 72-106 8-28 92-135/56-86 97-100 Room Air-Room Air 0-0 Intake and Output 05/24/22 05/25/22 05/25/22 19:59 03:59 11:59 Intake Total 626 964 5789 Output Total 100 100 Balance 893 023 2016 Weight 79.124 kg 80.331 kg Intake & Output: Intake & Output 05/24/22 05/25/22 05/25/22 19:59 03:59 11:59 Intake Total 623 764 1705 Output Total 100 100 Balance 099 919 8416 Weight 79.124 kg 80.331 kg Intake: IV 542 084 1656 Dextrose 5%-1/2Ns IV Solution 1 1000 ,000 ml @ 84 mls/hr IV .[id number] BILLIE Rx#:[id number] Potassium Chloride 40 Meq In 429 520 Dextrose 5% in Water 500 ml @ 130 mls/hr IV UD PRN Rx#: [id number] Rocephin 2 gm In Dextrose 5% in 50 Water 50 ml @ 100 mls/hr IV ONCE ONE Rx#:[id number] Oral 0 100 Output: Void Amount 100 100 Other: Urine Appearance Clear Clear Urine Color Yellow Yellow OBJ DATA Labs 05/25/22 05:24 05/25/22 05:24 Labs: Abnormal Lab Results 05/25/22 05/24/22 05/24/22 05:24 19:44 16:11 WBC Hgb POC Hct [place] # (Auto) Immature Gran # Absolute Neutrophils POC VBG pH POC VBG pCO2 at Temp POC VBG pO2 POC Venous O2 Sat POC Potassium 2.5 L* Potassium 2.4 L* POC Total CO2 21.0 L POC BUN 5 L BUN 4 L POC Glucose 115 H Calcium 8.3 L POC WB Ioniz Calcium 1.09 L Globulin 1.9 L Triglycerides 168 H Urine Appearance Hazy A Urine Protein Urine Ketones Urine Urobilinogen Ur Leukocyte Esterase 250 A Urine RBC 5 H Urine WBC Ur Squamous Epith Cells 27 H Urine Bacteria Hyaline Casts Urine Mucus 05/24/22 05/24/22 05/24/22 10:42 10:34 10:34 WBC 16.4 H Hgb 15.8 H POC Hct 51.0 H [place] # (Auto) 1.03 H Immature Gran # 0.07 H Absolute Neutrophils 11.02 H POC VBG pH 7.50 H POC VBG pCO2 at Temp 30.7 L POC VBG pO2 49 H POC Venous O2 Sat 88.0 H POC Potassium 2.1 L* Potassium POC Total CO2 POC BUN BUN POC Glucose 146 H Calcium POC WB Ioniz Calcium 1.03 L Globulin Triglycerides Urine Appearance Urine Protein Urine Ketones Urine Urobilinogen Ur Leukocyte Esterase Urine RBC Urine WBC Ur Squamous Epith Cells Urine Bacteria Hyaline Casts Urine Mucus 05/24/22 10:05 WBC Hgb POC Hct [place] # (Auto) Immature Gran # Absolute Neutrophils POC VBG pH POC VBG pCO2 at Temp POC VBG pO2 POC Venous O2 Sat POC Potassium Potassium POC Total CO2 POC BUN BUN POC Glucose Calcium POC WB Ioniz Calcium Globulin Triglycerides Urine Appearance Cloudy A Urine Protein >=500 A Urine Ketones 20 A Urine Urobilinogen 2.0 A Ur Leukocyte Esterase 75 A Urine RBC 7 H Urine WBC 73 H Ur Squamous Epith Cells 99 H Urine Bacteria Few A Hyaline Casts 375 H Urine Mucus Many A Meds: Medications Acetaminophen (Acetaminophen 325 Mg Tablet) 650 mg PO Q6HP PRN; Protocol PRN Reason: Per Pain Protocol/Fever > 101 Hydrocodone Bitart/Acetaminophen (Hydrocodone/Apap 5/325mg Tablet) 1 tab PO Q8H PRN; Protocol PRN Reason: pain Last Admin: 05/24/22 22:31 Dose: 1 tab Albuterol/Ipratropium (Ipratropium/Albuterol 3 Ml Ampul.Neb) 3 ml NEB Q4HP PRN PRN Reason: Shortness Of Breath Capsaicin (Capsaicin 0.025% Cream.Top 60gm) 1 dose TOPICAL QIDP PRN PRN Reason: Muscle Pain Carisoprodol (Carisoprodol 350 Mg Tablet) 350 mg PO TID PRN PRN Reason: Muscle Pain Enoxaparin Sodium (Enoxaparin 40 Mg/0.4 Ml Syringe) 40 mg SQ DAILY [facility] Famotidine (Famotidine 20 Mg Tablet) 40 mg PO QHS [facility] Last Admin: 05/24/22 19:50 Dose: 40 mg Potassium Chloride 40 meq/ (Dextrose) 520 mls @ 130 mls/hr IV UD PRN PRN Reason: Potassium < 3 Last Admin: 05/25/22 07:38 Dose: 130 mls/hr Magnesium Sulfate (Magnesium Sulfate) 2 gm in 50 mls @ 50 mls/hr IV UD PRN PRN Reason: Magnesium </= 1.6 Dextrose/Sodium Chloride (Dextrose 5%-1/2ns Iv Solution) 1,000 mls @ 84 mls/hr IV .[id number] [facility] Stop: 05/25/22 15:31 Last Admin: 05/25/22 04:43 Dose: 84 mls/hr Lamotrigine (Lamotrigine 100 Mg Tablet) 100 mg PO QHS [facility] Last Admin: 05/24/22 21:32 Dose: 100 mg Metoclopramide HCl (Metoclopramide 10 Mg/2 Ml Vial) 10 mg IV Q6HP PRN PRN Reason: Nausea And Vomiting Mirtazapine (Mirtazapine 15 Mg Tablet) 15 mg PO HS [facility] Last Admin: 05/24/22 21:32 Dose: 15 mg Omeprazole (Omeprazole 20 Mg Capsule) 20 mg PO QDAY [facility] Ondansetron HCl (Ondansetron 4 Mg/2 Ml Vial) 4 mg IV Q4HP PRN PRN Reason: Nausea And Vomiting Last Admin: 05/24/22 15:57 Dose: 4 mg Trelegy Ellipta (Inhaler) 1 dose INH QDAY [facility] Potassium Chloride (Potassium Chloride 20 Meq Tablet) 40 meq PO UD PRN PRN Reason: Potssium is 3-3.5 Potassium Chloride (Potassium Chloride 20 Meq Tablet) 40 meq PO UD PRN PRN Reason: Potassium < 3 Pregabalin (Pregabalin 150 Mg Capsule) 150 mg PO TID [facility] Last Admin: 05/24/22 21:32 Dose: 150 mg Promethazine HCl (Promethazine 25 Mg/Ml Vial) 12.5 mg IV Q6HP PRN PRN Reason: Nausea And Vomiting Last Admin: 05/24/22 20:15 Dose: 12.5 mg Quetiapine Fumarate (Quetiapine 100 Mg Tablet) 200 mg PO HS [facility] Last Admin: 05/24/22 21:32 Dose: 200 mg Sodium Chloride (0.9 % Sodium Chloride 10 Ml Syringe) 10 ml IV Q8 [facility] Last Admin: 05/25/22 05:59 Dose: 10 ml Topiramate (Topiramate 25 Mg Tablet) 50 mg PO BID [facility] Last Admin: 05/24/22 21:32 Dose: 50 mg Trazodone HCl (Trazodone Hcl 150 Mg Tablet) 150 mg PO QHS [facility] Last Admin: 05/24/22 21:32 Dose: 150 mg A/P Narrative A/P Narrative: A: *Hypokalemia, severe: *N/V/D: cyclic vomiting vs gastroparessis vs marijuana hyperemesis *h/o cyclic vominting/Gastroparesis/cannabis use daily *Leukocytosis appears chronic: Likely acute component from N/V, improved *?UTI: repeat ua unimpressive *COPD(no home O2): *Obesity: BMI 36, lifestyle modification *GERD: *Fatty liver: *Depression/Anxiety/PTSD/Bipolar *Chronic pain: P: -IV potassium replacement and trend -Antiemetics/capsaicin -stool studies -start clears and advance as tolerated to low fat soluble fiber, d/c ivf's -home IH's -Continue psych meds -PT/OT -ppx: Lovenox / home ppi Time Spent With Patient Time: Total time spent is greater than 50% in coordination of care (as documented) at patient's floor/unit and/or counseling patient: Subsequent: Total time with patient: 50 - 65 Minutes
[2022-05-25] MEDS: PROMETHAZINE 25 MG/ML VIAL IV PRN ×3 (07:50→20:18)
[2022-05-25] MEDS: POTASSIUM CHLORIDE 20 MEQ TABLET PO PRN (08:40)
[2022-05-25] MEDS: PREGABALIN 150 MG CAPSULE PO SCH ×3 (08:40→20:19)
[2022-05-25] MEDS: HYDROcodone/APAP 5/325MG TABLET PO PRN ×2 (08:40→17:19)
[2022-05-25] MEDS: TOPIRAMATE 25 MG TABLET PO SCH ×2 (08:45→20:19)
[2022-05-25] MEDS: ENOXAPARIN 40 MG/0.4 ML SYRINGE SQ SCH (08:45)
[2022-05-25] MEDS: OMEPRAZOLE 20 MG CAPSULE PO SCH (08:46)
[2022-05-25 11:16] LABS: Band Neutrophils % 2 % (0-10); Eosinophils % (Manual) 2 % (0-7); Lymphocytes % 55 % (15-49); Monocytes % (Manual) 8 % (1-12); Platelet Estimate NORMAL (Normal); RBC Morphology NORMAL (Normal); Segmented Neutrophils % 33 % (38-78)
[2022-05-25] MEDS: CARISOPRODOL 350 MG TABLET PO PRN ×2 (12:21→20:19)
[2022-05-25] MEDS: ONDANSETRON 4 MG/2 ML VIAL IV PRN ×2 (12:21→17:19)
--- NOTE | 2022-05-25 13:40 | Discharge Summary ---
Discharge Provider Provider IMPORTANT FOLLOW-UP INFORMATION FOR PCP: -Recommend f/u potassium lab outpt. Patient information: Note initiated : 05/25/22 at 1:39 pm Service Date, if different from initiated Date: [] Patient: Eunice Griffin 31 y/o F admitted on 05/24/22 for N, V, back pain. Chief Complaint: [] Date of admission: 05/24/22 15:19 Discharge date: 05/27/22 Primary care physician: Beata Damon NP Consults: 05/24/22 12:49 Consult to Physician [CONS] Stat Comment: Consulting Provider: Beau Yip Reason For Exam: Physician to Consult COURSE Hospital Course Hospital course: History of present illness: Ms. Griffin is a 31 year old F Presents to the ER with nausea vomiting diarrhea. She has had nausea vomiting for about 10 days and diarrhea for about a week. Patient has a history of gastroparesis cyclic vomiting syndrome as well as daily marijuana use. She says she is refrain from marijuana to see if it would make a difference with her vomiting but she says it did not make a difference. In the ER her potassium was 2.1 and she was given first oral to placement to see if she would tolerate it but she vomited up. And she was given IV replacemen t. Her urine was concerning for infection and thus cultures and antibiotics were obtained. She has not had any diarrhea since the ED. She has her last episode of diarrhea was this morning and it was a white-yellow watery fluid. She has some lower quadrant abdominal pain which is crampy. She also complains planes of alternating sweats and chills Flu and COVID were negative in the ED. Patient felt it was her gastroparesis as it started similar but lasted longer than her typical timeframe and thus she came into the ED. She quit smoking 6 months ago but vapes now. 05/25 Minimal nausea. No vomiting. No diarrhea since admission. Hypokalemia still present and significant. Leukocytosis likely reactive resolved. Continue potassium repletion and trend. Stool studies still pending. 05/26 Potassium still quite low. Improving but slowly. Continue aggressive treatment of follow-up later today and replete again if necessary. Patient had loose stool yesterday but negative for C. difficile or fecal WBCs. Start Imodium. Patient did have some nausea but no vomiting. 05/27 Up to 131 today.Patient continues to feel better. Has seen much improved. No further diarrhea or vomiting. Stable for discharge A: *Hypokalemia, severe: *N/V/D: cyclic vomiting vs gastroparessis vs marijuana hyperemesis *h/o cyclic vominting/Gastroparesis/cannabis use daily *Leukocytosis appears chronic: Likely acute component from N/V, improved *COPD(no home O2): *Obesity: BMI 36, lifestyle modification *GERD: *Fatty liver: *Depression/Anxiety/PTSD/Bipolar *Chronic pain: Discharge diagnosis: Nausea vomiting diarrhea hypokalemia Reason for admission: COPD obesity GERD fatty liver depression anxiety PTSD bipolar chronic pain Time Spent with Patient Time attestation: Total time spent providing and/or coordinating discharge services: Time spent: Greater than 30 minutes EXAM Constitutional Vitals: Temp Pulse Resp BP Pulse Ox O2 Del Method O2 Flow Rate 97.8 F 114 H 14 113/74 95 Room Air 0 05/25/22 11:50 05/25/22 07:49 05/25/22 11:50 05/25/22 11:50 05/25/22 11:50 05/25/22 07:52 05/25/22 05:35 Discharge Data Data Completed and Pending Labs on day of discharge: Labs from last 24 hours 05/25/22 05/25/22 05/24/22 05:24 05:24 19:44 WBC 7.4 RBC 4.18 Hgb 12.9 Hct 37.1 POC Hct MCV 88.8 MCH 30.9 MCHC 34.8 RDW 12.7 Plt Count 223 MPV 10.1 Seg Neutrophils % 33 L Band Neutrophils % 2 Lymphocytes % 55 H Monocytes % (Manual) 8 Eosinophils % (Manual) 2 Platelet Estimate Normal RBC Morphology Normal POC Sodium Sodium 139 POC Potassium Potassium 2.4 L* POC Chloride Chloride 105 Carbon Dioxide 23 POC Total CO2 Anion Gap 11.0 POC BUN BUN 4 L Creatinine 0.8 POC Creatinine GFR Calculation 97 Glucose 89 POC Glucose Uric Acid 7.5 Calcium 8.3 L POC WB Ioniz Calcium Phosphorus 2.7 Magnesium 1.8 Total Bilirubin 0.4 Direct Bilirubin < 0.2 GGT 35 AST 19 ALT 17 Alkaline Phosphatase 65 Lactate Dehydrogenase 175 Total Protein 5.9 Albumin 4.0 Globulin 1.9 L Albumin/Globulin Ratio 2.1 Triglycerides 168 H Procalcitonin Urine Color Yellow Urine Appearance Hazy A Urine pH 8.0 Ur Specific Bath 1.011 Urine Protein Negative Urine Glucose (UA) Negative Urine Ketones Negative Urine Occult Blood Negative Urine Nitrate Negative Urine Bilirubin Negative Urine Urobilinogen Negative Ur Leukocyte Esterase 250 A Urine RBC 5 H Urine WBC 3 Ur Squamous Epith Cells 27 H Urine Bacteria None Ur Culture Indicated? No 05/24/22 05/24/22 16:11 10:35 WBC RBC Hgb Hct POC Hct 39.0 MCV MCH MCHC RDW Plt Count MPV Seg Neutrophils % Band Neutrophils % Lymphocytes % Monocytes % (Manual) Eosinophils % (Manual) Platelet Estimate RBC Morphology POC Sodium 140 Sodium POC Potassium 2.5 L* Potassium POC Chloride 104 Chloride Carbon Dioxide POC Total CO2 21.0 L Anion Gap POC BUN 5 L BUN Creatinine POC Creatinine 0.7 GFR Calculation Glucose POC Glucose 115 H Uric Acid Calcium POC WB Ioniz Calcium 1.09 L Phosphorus Magnesium Total Bilirubin Direct Bilirubin GGT AST ALT Alkaline Phosphatase Lactate Dehydrogenase Total Protein Albumin Globulin Albumin/Globulin Ratio Triglycerides Procalcitonin 0.07 Urine Color Urine Appearance Urine pH Ur Specific Bath Urine Protein Urine Glucose (UA) Urine Ketones Urine Occult Blood Urine Nitrate Urine Bilirubin Urine Urobilinogen Ur Leukocyte Esterase Urine RBC Urine WBC Ur Squamous Epith Cells Urine Bacteria Ur Culture Indicated? Preliminary micro results at discharge 05/24/22 12:45 Blood Culture - Preliminary Blood 05/24/22 12:40 Blood Culture - Preliminary Blood Discharge Plan Patient/Caregiver Discharge Instructions Activity: increase activity as tolerated Diet: Low Fat Instructions: Hypokalemia (GEN), Acute Nausea and Vomiting (GEN) Prescriptions: Continued quetiapine 200 mg tablet 200 mg PO HS Qty: 30 2RF Rx Instructions: TAKE ONE TABLET BY MOUTH AT BEDTIME DAILY lamotrigine 100 mg tablet 100 mg PO QHS Qty: 60 0RF trazodone 150 mg tablet 150 mg PO QHS Qty: 30 2RF albuterol sulfate 90 mcg/actuation HFA aerosol inhaler 2 puff inhalation Q6H PRN (Reason: shortness of breath or wheezing) Qty: 8.5 12RF Trelegy Ellipta 200-62.5-25 mcg blister with device 1 inh inhalation QDAY 0RF omeprazole 20 mg capsule,delayed release(DR/EC) 20 mg PO QDAY famotidine 40 mg tablet 40 mg PO QHS mirtazapine 15 mg tablet 15 mg PO HS ondansetron 4 mg tablet,disintegrating 8 mg PO Q6 PRN (Reason: Nausea) (DME) Vortex Spacer See Rx Instructions .ROUTE .MEDSUPPLY Qty: 1 0RF Rx Instructions: As directed hydrocodone-acetaminophen 5-325 mg tablet 1 tab PO Q8H PRN (Reason: pain) Qty: 7 0RF topiramate [Topamax] 25 mg tablet 50 mg PO BID pregabalin 150 mg capsule 150 mg PO TID carisoprodol 350 mg Tablet 350 mg PO TID PRN (Reason: Muscle Pain) Follow Up Plan Follow up with: Baeta Damon NP-C [Primary Care Provider] - Patient Disposition: Home, Self-Care Prognosis: Fair Overall status at discharge: patient is progressing back to baseline Discharge Orders: Discharge Order (Routine); Ordered 05/27/22 Ordered By: Beau Yip
[2022-05-25] MEDS: lamoTRIgine 100 MG TABLET PO SCH (20:19)
[2022-05-25] MEDS: FAMOTIDINE 20 MG TABLET PO SCH (20:19)
[2022-05-25] MEDS: QUEtiapine 100 MG TABLET PO SCH (20:19)
[2022-05-25] MEDS: MIRTAZAPINE 15 MG TABLET PO SCH (20:19)
[2022-05-25] MEDS: traZODone HCL 150 MG TABLET PO SCH (20:20)
[2022-05-26] MEDS: PROMETHAZINE 25 MG/ML VIAL IV PRN ×4 (02:06→20:07)
[2022-05-26] MEDS: HYDROcodone/APAP 5/325MG TABLET PO PRN ×4 (02:06→21:50)
[2022-05-26] MEDS: 0.9 % SODIUM CHLORIDE 10 ML SYRINGE IV SCH ×3 (06:44→20:08)
[2022-05-26 07:53] LABS: Blood Urea Nitrogen 2 mg/dL (6-20); Calcium 8.6 mg/dL (8.6-10.4); Carbon Dioxide 23 mmol/L (22-30); Chloride 108 mmol/L (96-108); Glomerular Filtration Rate 97; Glucose 77 mg/dL (70-105)
[2022-05-26] MEDS ORDERED: LOPERAMIDE 2 MG CAPSULE PO PRN (07:53)
--- NOTE | 2022-05-26 07:57 | Internal Med Progress Note ---
SUBJECTIVE Subjective Patient information: Note initiated : 05/26/22 at 7:55 am Service Date, if different from initiated Date: [] Patient: Eunice Griffin 31 y/o F admitted on 05/24/22 for N, V, back pain. Chief Complaint: [] Interval history: History of present illness: Ms. Griffin is a 31 year old F Presents to the ER with nausea vomiting diarrhea. She has had nausea vomiting for about 10 days and diarrhea for about a week. Patient has a history of gastroparesis cyclic vomiting syndrome as well as daily marijuana use. She says she is refrain from marijuana to see if it would make a difference with her vomiting but she says it did not make a difference. In the ER her potassium was 2.1 and she was given first oral to placement to see if she would tolerate it but she vomited up. And she was given IV replacement. Her urine was concerning for infection and thus cultures and antibiotics were obtained. She has not had any diarrhea since the ED. She has her last episode of diarrhea was this morning and it was a white-yellow watery fluid. She has some lower quadrant abdominal pain which is crampy. She also complains planes of alternating sweats and chills Flu and COVID were negative in the ED. Patient felt it was her gastroparesis as it started similar but lasted longer than her typical timeframe and thus she came into the ED. She quit smoking 6 months ago but vapes now. 05/25 Minimal nausea. No vomiting. No diarrhea since admission. Hypokalemia still present and significant. Leukocytosis likely reactive resolved. Continue potassium repletion and trend. Stool studies still pending. 05/26 Potassium still quite low. Improving but slowly. Continue aggressive treatment of follow-up later today and replete again if necessary. Patient had loose stool yesterday but negative for C. difficile or fecal WBCs. Start Imodium. Patient did have some nausea but no vomiting. Review of Systems: Pertinent positives as above. Denies headache/fever//chest pain/cough/dyspnea/. PHYSICAL EXAM General: Alert, Awake, No acute Distress, obese Eyes/N/T: EOMI, no scleral icterus, Head/Neck: neck supple, full ROM, CV: RRR, No murmurs, Pulm: Clear b/l, no wheezing/rhonchi/rales, no respiratory distress Abd: soft, nontender, +BS x4 Ext: no clubbing/cyanosis/edema, nontender Neuro: Alert, no focal deficits, moves all extremities, , sensations intact b/l upper/lower Psychiatric: Skin: warm/dry, normal color Constitutional Vitals: Vital Signs Temp Pulse Resp BP Pulse Ox O2 Del Method O2 Flow Rate 97.7 F 82 12 111/56 98 Room Air 0 05/26/22 03:44 05/26/22 03:44 05/26/22 03:44 05/26/22 03:44 05/26/22 03:44 05/26/22 07:44 05/25/22 05:35 Period Temp Pulse Resp BP Sys/Mccall Pulse Ox O2 Del Method O2 Flow Rate Last 24 Hr 97.1 F-98.5 F 82-96 12-16 99-114/56-85 95-100 Room Air-Room Air Intake and Output 05/25/22 05/26/22 05/26/22 19:59 03:59 11:59 Intake Total 1320 680 Output Total 1150 2375 Balance 170 -1695 Weight 81.465 kg Intake & Output: Intake & Output 05/25/22 05/26/22 05/26/22 19:59 03:59 11:59 Intake Total 1320 680 Output Total 1150 2375 Balance 170 -1695 Weight 81.465 kg Intake: IV 520 Dextrose 5%-1/2Ns IV Solution 1 0 ,000 ml @ 84 mls/hr IV .[id number] BILLIE Rx#:[id number] Potassium Chloride 40 Meq In 520 Dextrose 5% in Water 500 ml @ 130 mls/hr IV UD PRN Rx#: [id number] Oral 800 680 Output: Urine Catheter Amount 1000 Void Amount 1150 850 Stool 525 Other: Meal Dinner Percent of Meal Consumed 100% Urine Appearance Cloudy Clear Urine Color Yellow Yellow Stool Color Brown Yellow Stool Consistency Liquid OBJ DATA Labs 05/25/22 05:24 05/26/22 05:51 Labs: Abnormal Lab Results 05/26/22 05/25/22 05/25/22 05:51 05:24 05:24 WBC Hgb POC Hct [facility] [facility] # (Auto) Seg Neutrophils % 33 L Lymphocytes % 55 H Immature Gran # Absolute Neutrophils POC VBG pH POC VBG pCO2 at Temp POC VBG pO2 POC Venous O2 Sat POC Potassium Potassium 2.8 L* 2.4 L* POC Total CO2 POC BUN BUN 2 L 4 L POC Glucose Calcium 8.3 L POC WB Ioniz Calcium Globulin 1.9 L Triglycerides 168 H Urine Appearance Urine Protein Urine Ketones Urine Urobilinogen Ur Leukocyte Esterase Urine RBC Urine WBC Ur Squamous Epith Cells Urine Bacteria Hyaline Casts Urine Mucus 05/24/22 05/24/22 05/24/22 19:44 16:11 10:42 WBC Hgb POC Hct 51.[address] [facility] # (Auto) Seg Neutrophils % Lymphocytes % Immature Gran # Absolute Neutrophils POC VBG pH POC VBG pCO2 at Temp POC VBG pO2 POC Venous O2 Sat POC Potassium 2.5 L* 2.1 L* Potassium POC Total CO2 21.0 L POC BUN 5 L BUN POC Glucose 115 H 146 H Calcium POC WB Ioniz Calcium 1.09 L 1.03 L Globulin Triglycerides Urine Appearance Hazy A Urine Protein Urine Ketones Urine Urobilinogen Ur Leukocyte Esterase 250 A Urine RBC 5 H Urine WBC Ur Squamous Epith Cells 27 H Urine Bacteria Hyaline Casts Urine Mucus 05/24/22 05/24/22 05/24/22 10:34 10:34 10:05 WBC 16.4 H Hgb 15.[address] [facility] # (Auto) 1.03 H Seg Neutrophils % Lymphocytes % Immature Gran # 0.07 H Absolute Neutrophils 11.02 H POC VBG pH 7.50 H POC VBG pCO2 at Temp 30.7 L POC VBG pO2 49 H POC Venous O2 Sat 88.0 H POC Potassium Potassium POC Total CO2 POC BUN BUN POC Glucose Calcium POC WB Ioniz Calcium Globulin Triglycerides Urine Appearance Cloudy A Urine Protein >=500 A Urine Ketones 20 A Urine Urobilinogen 2.0 A Ur Leukocyte Esterase 75 A Urine RBC 7 H Urine WBC 73 H Ur Squamous Epith Cells 99 H Urine Bacteria Few A Hyaline Casts 375 H Urine Mucus Many A Meds: Medications Acetaminophen (Acetaminophen 325 Mg Tablet) 650 mg PO Q6HP PRN; Protocol PRN Reason: Per Pain Protocol/Fever > 101 Hydrocodone Bitart/Acetaminophen (Hydrocodone/Apap 5/325mg Tablet) 1 tab PO Q8H PRN; Protocol PRN Reason: pain Last Admin: 05/26/22 02:06 Dose: 1 tab Albuterol/Ipratropium (Ipratropium/Albuterol 3 Ml Ampul.Neb) 3 ml NEB Q4HP PRN PRN Reason: Shortness Of Breath Capsaicin (Capsaicin 0.025% Cream.Top 60gm) 1 dose TOPICAL QIDP PRN PRN Reason: Muscle Pain Carisoprodol (Carisoprodol 350 Mg Tablet) 350 mg PO TID PRN PRN Reason: Muscle Pain Last Admin: 05/25/22 20:19 Dose: 350 mg Enoxaparin Sodium (Enoxaparin 40 Mg/0.4 Ml Syringe) 40 mg SQ DAILY [facility] Last Admin: 05/25/22 08:45 Dose: 40 mg Famotidine (Famotidine 20 Mg Tablet) 40 mg PO QHS [facility] Last Admin: 05/25/22 20:19 Dose: 40 mg Potassium Chloride 40 meq/ (Dextrose) 520 mls @ 130 mls/hr IV UD PRN PRN Reason: Potassium < 3 Last Infusion: 05/25/22 12:02 Dose: Infused Magnesium Sulfate (Magnesium Sulfate) 2 gm in 50 mls @ 50 mls/hr IV UD PRN PRN Reason: Magnesium </= 1.6 Lamotrigine (Lamotrigine 100 Mg Tablet) 100 mg PO QHS [facility] Last Admin: 05/25/22 20:19 Dose: 100 mg Metoclopramide HCl (Metoclopramide 10 Mg/2 Ml Vial) 10 mg IV Q6HP PRN PRN Reason: Nausea And Vomiting Mirtazapine (Mirtazapine 15 Mg Tablet) 15 mg PO [facility] Last Admin: 05/25/22 20:19 Dose: 15 mg Omeprazole (Omeprazole 20 Mg Capsule) 20 mg PO QDAY [facility] Last Admin: 05/25/22 08:46 Dose: 20 mg Ondansetron HCl (Ondansetron 4 Mg/2 Ml Vial) 4 mg IV Q4HP PRN PRN Reason: Nausea And Vomiting Last Admin: 05/25/22 17:19 Dose: 4 mg Trelegy Ellipta (Inhaler) 1 dose INH QDAY [facility] Last Admin: 05/25/22 11:01 Dose: Not Given Potassium Chloride (Potassium Chloride 20 Meq Tablet) 40 meq PO UD PRN PRN Reason: Potssium is 3-3.5 Last Admin: 05/25/22 08:40 Dose: 40 meq Potassium Chloride (Potassium Chloride 20 Meq Tablet) 40 meq PO UD PRN PRN Reason: Potassium < 3 Pregabalin (Pregabalin 150 Mg Capsule) 150 mg PO TID [facility] Last Admin: 05/25/22 20:19 Dose: 150 mg Promethazine HCl (Promethazine 25 Mg/Ml Vial) 12.5 mg IV Q6HP PRN PRN Reason: Nausea And Vomiting Last Admin: 05/26/22 02:06 Dose: 12.5 mg Quetiapine Fumarate (Quetiapine 100 Mg Tablet) 200 mg PO HS [facility] Last Admin: 05/25/22 20:19 Dose: 200 mg Sodium Chloride (0.9 % Sodium Chloride 10 Ml Syringe) 10 ml IV Q8 [facility] Last Admin: 05/26/22 06:44 Dose: Not Given Topiramate (Topiramate 25 Mg Tablet) 50 mg PO BID [facility] Last Admin: 05/25/22 20:19 Dose: 50 mg Trazodone HCl (Trazodone Hcl 150 Mg Tablet) 150 mg PO QHS [facility] Last Admin: 05/25/22 20:20 Dose: 150 mg A/P Narrative A/P Narrative: A: *Hypokalemia, severe: slowly improvning *N/V/D: cyclic vomiting vs gastroparessis vs marijuana hyperemesis -stool fecal wbc neg, neg c. diff *h/o cyclic vominting/Gastroparesis/cannabis use daily *Leukocytosis appears chronic: Likely acute component from N/V, improved *COPD(no home O2): *Obesity: BMI 36, lifestyle modification *GERD: *Fatty liver: *Depression/Anxiety/PTSD/Bipolar *Chronic pain: P: -IV potassium replacement and trend -Antiemetics -full liquid and advance as tolerated to low fat soluble fiber, -home IH's -Continue psych meds -imodium start -PT/OT -ppx: Lovenox / home ppi Time Spent With Patient Time: Total time spent is greater than 50% in coordination of care (as documented) at patient's floor/unit and/or counseling patient: Subsequent: Total time with patient: 50 - 65 Minutes
[2022-05-26] MEDS ORDERED: LOPERAMIDE 2 MG CAPSULE PO SCH (08:00)
[2022-05-26] MEDS: ENOXAPARIN 40 MG/0.4 ML SYRINGE SQ SCH (08:19)
[2022-05-26] MEDS: TOPIRAMATE 25 MG TABLET PO SCH ×2 (08:19→20:07)
[2022-05-26] MEDS: PREGABALIN 150 MG CAPSULE PO SCH ×3 (08:20→20:07)
[2022-05-26] MEDS: CARISOPRODOL 350 MG TABLET PO PRN ×3 (08:20→20:08)
[2022-05-26] MEDS: OMEPRAZOLE 20 MG CAPSULE PO SCH (08:20)
[2022-05-26] MEDS: POTASSIUM CHLORIDE 40 MEQ in DEXTROSE 5% IN WATER 500 ML IV PRN (08:33)
[2022-05-26 09:18] LABS: POC INR 1.2 (0.8-1.2); POC Pro Time 14.6 (11.9-14.5)
[2022-05-26] MEDS: ONDANSETRON 4 MG/2 ML VIAL IV PRN ×2 (10:17→16:22)
[2022-05-26 14:21] LABS: POC Blood Urea Nitrogen < 3 (6-20); POC Calcium, Ionized 1.16 (1.16-1.32); POC Chloride 110 (96-108); POC Creatinine 0.7 (0.6-1.2); POC Glucose, Random 96 (70-105); POC Potassium 3.3 (3.3-5.1); POC Sodium 143 (133-145)
[2022-05-26] MEDS: POTASSIUM CHLORIDE 20 MEQ TABLET PO PRN (15:53)
[2022-05-26] MEDS: lamoTRIgine 100 MG TABLET PO SCH (20:07)
[2022-05-26] MEDS: traZODone HCL 150 MG TABLET PO SCH (20:07)
[2022-05-26] MEDS: MIRTAZAPINE 15 MG TABLET PO SCH (20:07)
[2022-05-26] MEDS: QUEtiapine 100 MG TABLET PO SCH (20:08)
[2022-05-26] MEDS: FAMOTIDINE 20 MG TABLET PO SCH (20:08)
[2022-05-27] MEDS: PROMETHAZINE 25 MG/ML VIAL IV PRN (05:50)
--- NOTE | 2022-05-27 06:55 | Internal Med Progress Note ---
SUBJECTIVE Subjective Patient information: Note initiated : 05/27/22 at 6:54 am Service Date, if different from initiated Date: [] Patient: Eunice Griffin 31 y/o F admitted on 05/24/22 for N, V, back pain. Chief Complaint: [] Interval history: History of present illness: Ms. Griffin is a 31 year old F Presents to the ER with nausea vomiting diarrhea. She has had nausea vomiting for about 10 days and diarrhea for about a week. Patient has a history of gastroparesis cyclic vomiting syndrome as well as daily marijuana use. She says she is refrain from marijuana to see if it would make a difference with her vomiting but she says it did not make a difference. In the ER her potassium was 2.1 and she was given first oral to placement to see if she would tolerate it but she vomited up. And she was given IV replacement. Her urine was concerning for infection and thus cultures and antibiotics were obtained. She has not had any diarrhea since the ED. She has her last episode of diarrhea was this morning and it was a white-yellow watery fluid. She has some lower quadrant abdominal pain which is crampy. She also complains planes of alternating sweats and chills Flu and COVID were negative in the ED. Patient felt it was her gastroparesis as it started similar but lasted longer than her typical timeframe and thus she came into the ED. She quit smoking 6 months ago but vapes now. 05/25 Minimal nausea. No vomiting. No diarrhea since admission. Hypokalemia still present and significant. Leukocytosis likely reactive resolved. Continue potassium repletion and trend. Stool studies still pending. 05/26 Potassium still quite low. Improving but slowly. Continue aggressive treatment of follow-up later today and replete again if necessary. Patient had loose stool yesterday but negative for C. difficile or fecal WBCs. Start Imodium. Patient did have some nausea but no vomiting. Review of Systems: Pertinent positives as above. Denies headache/fever//chest pain/cough/dyspnea/. PHYSICAL EXAM General: Alert, Awake, No acute Distress, obese Eyes/N/T: EOMI, no scleral icterus, Head/Neck: neck supple, full ROM, CV: RRR, No murmurs, Pulm: Clear b/l, no wheezing/rhonchi/rales, no respiratory distress Abd: soft, nontender, +BS x4 Ext: no clubbing/cyanosis/edema, nontender Neuro: Alert, no focal deficits, moves all extremities, , sensations intact b/l upper/lower Psychiatric: Skin: warm/dry, normal color Constitutional Vitals: Vital Signs Temp Pulse Resp BP Pulse Ox O2 Del Method O2 Flow Rate 98.7 F 94 H 16 123/86 97 Room Air 0 05/27/22 03:19 05/27/22 03:19 05/27/22 03:19 05/27/22 03:19 05/27/22 03:19 05/27/22 03:19 05/25/22 05:35 Period Temp Pulse Resp BP Sys/Mccall Pulse Ox O2 Del Method O2 Flow Rate Last 24 Hr 97.1 F-98.7 F 94-105 16-20 109-123/75-86 96-98 Room Air-Room Air Intake and Output 05/26/22 05/27/22 05/27/22 19:59 03:59 11:59 Intake Total 1920 500 Output Total 1600 Balance 320 500 Weight 80.558 kg Intake & Output: Intake & Output 05/26/22 05/27/22 05/27/22 19:59 03:59 11:59 Intake Total 1920 500 Output Total 1600 Balance 320 500 Weight 80.558 kg Intake: IV 520 Potassium Chloride 40 Meq In 520 Dextrose 5% in Water 500 ml @ 130 mls/hr IV UD PRN Rx#: [id number] Oral 1400 500 Output: Void Amount 1600 Other: Urine Appearance Clear Urine Color Yellow OBJ DATA Labs 05/25/22 05:24 05/26/22 05:51 Labs: Abnormal Lab Results 05/26/22 05/26/22 05/26/22 14:16 09:14 05:51 WBC Hgb POC Hct 32.0 L [place] # (Auto) Seg Neutrophils % Lymphocytes % Immature Gran # Absolute Neutrophils POC PT 14.6 H POC VBG pH POC VBG pCO2 at Temp POC VBG pO2 POC Venous O2 Sat POC Potassium Potassium 2.8 L* POC Chloride 110 H POC Total CO2 19.0 L POC BUN < 3 L BUN 2 L POC Glucose Calcium POC WB Ioniz Calcium Globulin Triglycerides Urine Appearance Urine Protein Urine Ketones Urine Urobilinogen Ur Leukocyte Esterase Urine RBC Urine WBC Ur Squamous Epith Cells Urine Bacteria Hyaline Casts Urine Mucus 05/25/22 05/25/22 05/24/22 05:24 05:24 19:44 WBC Hgb POC Hct [place] # (Auto) Seg Neutrophils % 33 L Lymphocytes % 55 H Immature Gran # Absolute Neutrophils POC PT POC VBG pH POC VBG pCO2 at Temp POC VBG pO2 POC Venous O2 Sat POC Potassium Potassium 2.4 L* POC Chloride POC Total CO2 POC BUN BUN 4 L POC Glucose Calcium 8.3 L POC WB Ioniz Calcium Globulin 1.9 L Triglycerides 168 H Urine Appearance Hazy A Urine Protein Urine Ketones Urine Urobilinogen Ur Leukocyte Esterase 250 A Urine RBC 5 H Urine WBC Ur Squamous Epith Cells 27 H Urine Bacteria Hyaline Casts Urine Mucus 05/24/22 05/24/22 05/24/22 16:11 10:42 10:34 WBC Hgb POC Hct 51.0 H [place] # (Auto) Seg Neutrophils % Lymphocytes % Immature Gran # Absolute Neutrophils POC PT POC VBG pH 7.50 H POC VBG pCO2 at Temp 30.7 L POC VBG pO2 49 H POC Venous O2 Sat 88.0 H POC Potassium 2.5 L* 2.1 L* Potassium POC Chloride POC Total CO2 21.0 L POC BUN 5 L BUN POC Glucose 115 H 146 H Calcium POC WB Ioniz Calcium 1.09 L 1.03 L Globulin Triglycerides Urine Appearance Urine Protein Urine Ketones Urine Urobilinogen Ur Leukocyte Esterase Urine RBC Urine WBC Ur Squamous Epith Cells Urine Bacteria Hyaline Casts Urine Mucus 05/24/22 05/24/22 10:34 10:05 WBC 16.4 H Hgb 15.8 H POC Hct [place] # (Auto) 1.03 H Seg Neutrophils % Lymphocytes % Immature Gran # 0.07 H Absolute Neutrophils 11.02 H POC PT POC VBG pH POC VBG pCO2 at Temp POC VBG pO2 POC Venous O2 Sat POC Potassium Potassium POC Chloride POC Total CO2 POC BUN BUN POC Glucose Calcium POC WB Ioniz Calcium Globulin Triglycerides Urine Appearance Cloudy A Urine Protein >=500 A Urine Ketones 20 A Urine Urobilinogen 2.0 A Ur Leukocyte Esterase 75 A Urine RBC 7 H Urine WBC 73 H Ur Squamous Epith Cells 99 H Urine Bacteria Few A Hyaline Casts 375 H Urine Mucus Many A Meds: Medications Acetaminophen (Acetaminophen 325 Mg Tablet) 650 mg PO Q6HP PRN; Protocol PRN Reason: Per Pain Protocol/Fever > 101 Hydrocodone Bitart/Acetaminophen (Hydrocodone/Apap 5/325mg Tablet) 1 tab PO Q8H PRN; Protocol PRN Reason: pain Last Admin: 05/26/22 21:50 Dose: 1 tab Albuterol/Ipratropium (Ipratropium/Albuterol 3 Ml Ampul.Neb) 3 ml NEB Q4HP PRN PRN Reason: Shortness Of Breath Capsaicin (Capsaicin 0.025% Cream.Top 60gm) 1 dose TOPICAL QIDP PRN PRN Reason: Muscle Pain Carisoprodol (Carisoprodol 350 Mg Tablet) 350 mg PO TID PRN PRN Reason: Muscle Pain Last Admin: 05/26/22 20:08 Dose: 350 mg Enoxaparin Sodium (Enoxaparin 40 Mg/0.4 Ml Syringe) 40 mg SQ DAILY [facility] Last Admin: 05/26/22 08:19 Dose: 40 mg Famotidine (Famotidine 20 Mg Tablet) 40 mg PO QHS [facility] Last Admin: 05/26/22 20:08 Dose: 40 mg Potassium Chloride 40 meq/ (Dextrose) 520 mls @ 130 mls/hr IV UD PRN PRN Reason: Potassium < 3 Last Infusion: 05/26/22 13:38 Dose: Infused Magnesium Sulfate (Magnesium Sulfate) 2 gm in 50 mls @ 50 mls/hr IV UD PRN PRN Reason: Magnesium </= 1.6 Lamotrigine (Lamotrigine 100 Mg Tablet) 100 mg PO QHS [facility] Last Admin: 05/26/22 20:07 Dose: 100 mg Loperamide HCl (Loperamide 2 Mg Capsule) 2 mg PO PRN PRN PRN Reason: Diarrhea Last Admin: 05/26/22 20:08 Dose: 2 mg Metoclopramide HCl (Metoclopramide 10 Mg/2 Ml Vial) 10 mg IV Q6HP PRN PRN Reason: Nausea And Vomiting Mirtazapine (Mirtazapine 15 Mg Tablet) 15 mg PO HS [facility] Last Admin: 05/26/22 20:07 Dose: 15 mg Omeprazole (Omeprazole 20 Mg Capsule) 20 mg PO QDAY [facility] Last Admin: 05/26/22 08:20 Dose: 20 mg Ondansetron HCl (Ondansetron 4 Mg/2 Ml Vial) 4 mg IV Q4HP PRN PRN Reason: Nausea And Vomiting Last Admin: 05/26/22 16:22 Dose: 4 mg Trelegy Ellipta (Inhaler) 1 dose INH QDAY [facility] Last Admin: 05/26/22 08:20 Dose: Not Given Potassium Chloride (Potassium Chloride 20 Meq Tablet) 40 meq PO UD PRN PRN Reason: Potssium is 3-3.5 Last Admin: 05/26/22 15:53 Dose: 40 meq Potassium Chloride (Potassium Chloride 20 Meq Tablet) 40 meq PO UD PRN PRN Reason: Potassium < 3 Pregabalin (Pregabalin 150 Mg Capsule) 150 mg PO TID [facility] Last Admin: 05/26/22 20:07 Dose: 150 mg Promethazine HCl (Promethazine 25 Mg/Ml Vial) 12.5 mg IV Q6HP PRN PRN Reason: Nausea And Vomiting Last Admin: 05/27/22 05:50 Dose: 12.5 mg Quetiapine Fumarate (Quetiapine 100 Mg Tablet) 200 mg PO HS [facility] Last Admin: 05/26/22 20:08 Dose: 200 mg Sodium Chloride (0.9 % Sodium Chloride 10 Ml Syringe) 10 ml IV Q8 [facility] Last Admin: 05/26/22 20:08 Dose: 10 ml Topiramate (Topiramate 25 Mg Tablet) 50 mg PO BID [facility] Last Admin: 05/26/22 20:07 Dose: 50 mg Trazodone HCl (Trazodone Hcl 150 Mg Tablet) 150 mg PO QHS [facility] Last Admin: 05/26/22 20:07 Dose: 150 mg A/P Narrative A/P Narrative: A: *Hypokalemia, severe: slowly improvning *N/V/D: cyclic vomiting vs gastroparessis vs marijuana hyperemesis -stool fecal wbc neg, neg c. diff *h/o cyclic vominting/Gastroparesis/cannabis use daily *Leukocytosis appears chronic: Likely acute component from N/V, improved *COPD(no home O2): *Obesity: BMI 36, lifestyle modification *GERD: *Fatty liver: *Depression/Anxiety/PTSD/Bipolar *Chronic pain: P: -IV potassium replacement and trend -Antiemetics -full liquid and advance as tolerated to low fat soluble fiber, -home IH's -Continue psych meds -imodium started -PT/OT -ppx: Lovenox / home ppi Time Spent With Patient Time: Total time spent is greater than 50% in coordination of care (as documented) at patient's floor/unit and/or counseling patient:
[2022-05-27] MEDS: OMEPRAZOLE 20 MG CAPSULE PO SCH (07:13)
[2022-05-27] MEDS: 0.9 % SODIUM CHLORIDE 10 ML SYRINGE IV SCH (07:13)
[2022-05-27] MEDS: TOPIRAMATE 25 MG TABLET PO SCH (07:55)
[2022-05-27] MEDS: ENOXAPARIN 40 MG/0.4 ML SYRINGE SQ SCH (07:56)
[2022-05-27] MEDS: HYDROcodone/APAP 5/325MG TABLET PO PRN (07:57)
[2022-05-27] MEDS: PREGABALIN 150 MG CAPSULE PO SCH (07:58)
[2022-05-27 08:19] LABS: POC Blood Urea Nitrogen < 3 (6-20); POC Calcium, Ionized 1.21 (1.16-1.32); POC Chloride 109 (96-108); POC Creatinine 0.7 (0.6-1.2); POC Glucose, Random 105 (70-105); POC Potassium 3.2 (3.3-5.1); POC Sodium 143 (133-145)
[2022-05-27] MEDS ORDERED: POTASSIUM CHLORIDE 20 MEQ TABLET PO ONE (08:29)
[2022-05-27] MEDS: ONDANSETRON 4 MG/2 ML VIAL IV PRN (09:44)
[2022-05-27] MEDS: CARISOPRODOL 350 MG TABLET PO PRN (09:44)
== END 2022-05-27 11:00 | disposition home or self-care (01) | DRG 641 ==
LOC: ED 10:15 → ICU 15:19
PROVIDERS: ADMIT Internal Medicine; ATTEND Internal Medicine

== ENCOUNTER 2023-07-20 16:47 | Inpatient (IN) ==
[2023-07-20] MEDS ORDERED: IOPAMIDOL 100 ML BOTTLE IV ONE (16:48)
[2023-07-20] MEDS: 0.9 % SODIUM CHLORIDE 1,000 ML IV ONE (17:24)
[2023-07-20] MEDS: ACETAMINOPHEN 325 MG TABLET PO ONE (17:24)
[2023-07-20] MEDS: KETOROLAC 30 MG/ML VIAL IV ONE (17:24)
[2023-07-20] MEDS: LORazepam 2 MG/ML VIAL IV ONE ×2 (17:25→18:24)
[2023-07-20] MEDS: ACETAMINOPHEN 500 MG TABLET PO ONE (17:25)
[2023-07-20] MEDS: DOXYCYCLINE HYCLATE 100 MG TABLET.ORL PO ONE (17:43)
[2023-07-20] MEDS: cefTRIAXone 2 GM in DEXTROSE 5% IN WATER 50 ML IV ONE (17:43)
[2023-07-20 18:11] LABS: Basophils # (Auto) 0.04 K/mcL (0.00-0.30); Basophils % (Auto) 0.2 % (0.0-2.0); Eosinophils # (Auto) 0.08 K/mcL (0.00-0.70); Eosinophils % (Auto) 0.4 % (0.0-7.0); Hematocrit 44.9 % (34.1-44.9); Hemoglobin 15.8 g/dL (11.2-15.7); Lymphocytes # (Auto) 5.82 K/mcL (1.50-4.80); Lymphocytes % (Auto) 30.8 % (15.5-49.0); Mean Cell Volume 90.7 fL (80.0-100.0); Mean Corpuscular HGB Conc 35.2 g/dL (31.0-36.0); Mean Platelet Volume 9.5 fL (8.8-12.5); Monocytes # (Auto) 1.31 K/mcL (0.10-0.90); Monocytes % (Auto) 6.9 % (1.0-12.0); Neutrophils % (Auto) 61.3 % (38.0-78.0); Platelet Count 388 K/mcL (140-440); RBC 4.95 M/mcL (3.59-5.38); Red Cell Distribution Width 12.8 % (11.5-14.5); WBC 18.9 K/mcL (4.5-11.0)
[2023-07-20 18:12] LABS: Thyroid Stimulating Hormone 1.17 uIU/mL (0.27-5.01)
[2023-07-20 18:15] LABS: Blood Urea Nitrogen 7 mg/dL (6-20); Calcium 10.3 mg/dL (8.6-10.4); Carbon Dioxide 19 mmol/L (22-30); Chloride 102 mmol/L (96-108); Glomerular Filtration Rate 84; Glucose 134 mg/dL (70-105)
[2023-07-20] MEDS: POTASSIUM CHLORIDE 20 MEQ TABLET PO ONE ×2 (18:37→22:40)
[2023-07-20] MEDS: POTASSIUM CHLORIDE 20 MEQ in DEXTROSE 5% IN WATER 250 ML IV ONE (18:37)
[2023-07-20] MEDS: morphine 4 MG/ML VIAL IV ONE (18:52)
[2023-07-20] MEDS: VANCOMYCIN 1,500 MG in 0.9 % SODIUM CHLORIDE 500 ML IV ONE (19:39)
[2023-07-20 21:31] LABS: Blood Urea Nitrogen 6 mg/dL (6-20); Calcium 8.6 mg/dL (8.6-10.4); Carbon Dioxide 21 mmol/L (22-30); Chloride 103 mmol/L (96-108); Glomerular Filtration Rate 96; Glucose 112 mg/dL (70-105)
[2023-07-20] MEDS ORDERED: IPRATROPIUM/ALBUTEROL 3 ML AMPUL.NEB NEB PRN (21:36)
[2023-07-20] MEDS: VANCOMYCIN PER PHARMACY IV ONE (21:43)
[2023-07-20] MEDS: LACTATED RINGERS 1,000 ML IV SCH (22:01)
[2023-07-20] MEDS: lamoTRIgine 100 MG TABLET PO SCH (22:12)
[2023-07-20] MEDS: QUEtiapine 100 MG TABLET PO SCH (22:12)
[2023-07-20] MEDS: levETIRAcetam 500 MG TABLET PO SCH (22:12)
[2023-07-20] MEDS: CARISOPRODOL 350 MG TABLET PO PRN (22:13)
[2023-07-20] MEDS: HYDROcodone/APAP 5/325MG TABLET PO PRN (22:13)
[2023-07-20] MEDS: traZODone HCL 50 MG TABLET PO PRN (22:13)
[2023-07-20] MEDS: 0.9 % SODIUM CHLORIDE 10 ML SYRINGE IV SCH (22:14)
[2023-07-20] MEDS: FAMOTIDINE 20 MG TABLET PO SCH (22:14)
[2023-07-20] MEDS: HEPARIN 5,000 UNIT/ML VIAL SQ SCH (22:41)
[2023-07-21] MEDS: LACTATED RINGERS 1,000 ML IV SCH (01:05)
[2023-07-21] MEDS ORDERED: VANCOMYCIN 1,500 MG in 0.9 % SODIUM CHLORIDE 500 ML IV SCH (06:00)
[2023-07-21 06:28] LABS: Basophils # (Auto) 0.01 K/mcL (0.00-0.30); Basophils % (Auto) 0.1 % (0.0-2.0); Eosinophils # (Auto) 0.14 K/mcL (0.00-0.70); Eosinophils % (Auto) 1.5 % (0.0-7.0); Hematocrit 35.2 % (34.1-44.9); Hemoglobin 12.1 g/dL (11.2-15.7); Lymphocytes # (Auto) 3.33 K/mcL (1.50-4.80); Lymphocytes % (Auto) 35.9 % (15.5-49.0); Mean Cell Volume 94.4 fL (80.0-100.0); Mean Corpuscular HGB Conc 34.4 g/dL (31.0-36.0); Mean Platelet Volume 9.3 fL (8.8-12.5); Monocytes % (Auto) 8.6 % (1.0-12.0); Neutrophils % (Auto) 53.1 % (38.0-78.0); Platelet Count 215 K/mcL (140-440); RBC 3.73 M/mcL (3.59-5.38); Red Cell Distribution Width 12.9 % (11.5-14.5); WBC 9.3 K/mcL (4.5-11.0)
[2023-07-21 06:59] LABS: Blood Urea Nitrogen 5 mg/dL (6-20); Calcium 8.3 mg/dL (8.6-10.4); Carbon Dioxide 18 mmol/L (22-30); Chloride 108 mmol/L (96-108); Glomerular Filtration Rate 119; Glucose 95 mg/dL (70-105)
[2023-07-21] MEDS ORDERED: IPRATROPIUM/ALBUTEROL 3 ML AMPUL.NEB NEB PRN (07:18)
[2023-07-21] MEDS ORDERED: VANCOMYCIN PER PHARMACY IV SCH (08:15)
[2023-07-21] MEDS: TOPIRAMATE 25 MG TABLET PO SCH (08:52)
[2023-07-21] MEDS: POTASSIUM CHLORIDE 20 MEQ PACKET PO ONE (08:53)
[2023-07-21] MEDS: PREGABALIN 150 MG CAPSULE PO SCH (08:53)
[2023-07-21] MEDS: VANCOMYCIN 1,250 MG in 0.9 % SODIUM CHLORIDE 500 ML IV SCH (09:54)
[2023-07-21] MEDS: Tiotropium-Olodaterol [Stiolto Respimat] 2.5-2.5 mcg Inhaler INH SCH (11:15)
[2023-07-21] MEDS: FLUTICASONE HFA 110MCG INHALER INH SCH (11:15)
[2023-07-21] MEDS: MIRTAZAPINE 15 MG TABLET PO SCH (20:23)
[2023-07-21] MEDS: PROMETHAZINE 25 MG TABLET PO PRN (22:42)
[2023-07-22 05:16] LABS: Appearance,Urine CLEAR (Clear); Bilirubin,Urine Negative (Negative); Color,Urine STRAW; Culture Indicated,Urine No; Glucose,Urine (UA) Negative (Negative); Ketones,Urine Negative (Negative); Leukocyte Esterase,Urine Negative /uL (Negative); Nitrate,Urine Negative (Negative); Protein,Urine Negative (Negative); Specific Gravity,Urine 1.006 (1.000-1.035); Urine RBC 1 /hpf (0-3); Urine Squamous Epithelial Cell 3 /hpf (0-4); Urine WBC 0 /hpf (0-4); Urobilinogen,Urine Negative
[2023-07-22 06:18] LABS: Basophils # (Auto) 0.03 K/mcL (0.00-0.30); Basophils % (Auto) 0.4 % (0.0-2.0); Eosinophils % (Auto) 2.5 % (0.0-7.0); Hematocrit 34.2 % (34.1-44.9); Hemoglobin 11.8 g/dL (11.2-15.7); Lymphocytes # (Auto) 3.33 K/mcL (1.50-4.80); Lymphocytes % (Auto) 41.1 % (15.5-49.0); Mean Cell Volume 93.4 fL (80.0-100.0); Mean Corpuscular HGB Conc 34.5 g/dL (31.0-36.0); Mean Platelet Volume 9.7 fL (8.8-12.5); Monocytes # (Auto) 0.63 K/mcL (0.10-0.90); Monocytes % (Auto) 7.8 % (1.0-12.0); Neutrophils % (Auto) 47.7 % (38.0-78.0); Platelet Count 208 K/mcL (140-440); RBC 3.66 M/mcL (3.59-5.38); Red Cell Distribution Width 12.5 % (11.5-14.5); WBC 8.1 K/mcL (4.5-11.0)
[2023-07-22 06:57] LABS: Blood Urea Nitrogen 3 mg/dL (6-20); Calcium 8.7 mg/dL (8.6-10.4); Carbon Dioxide 19 mmol/L (22-30); Chloride 109 mmol/L (96-108); Glomerular Filtration Rate 119; Glucose 94 mg/dL (70-105)
[2023-07-22] MEDS: POTASSIUM CHLORIDE 20 MEQ PACKET PO ONE (11:15)
[2023-07-22] MEDS ORDERED: AMPICILLIN SODIUM/SULBACTAM NA 3 GM in 0.9 % SODIUM CHLORIDE 100 ML IV SCH (12:00)
[2023-07-22] MEDS: AMPICILLIN SODIUM/SULBACTAM NA 3 GM in 0.9 % SODIUM CHLORIDE 100 ML IV SCH (13:05)
[2023-07-22] MEDS: HYDROmorphone 0.5 MG/0.5 ML SYRINGE IV PRN (15:32)
[2023-07-23 06:38] LABS: Basophils # (Auto) 0.02 K/mcL (0.00-0.30); Basophils % (Auto) 0.3 % (0.0-2.0); Eosinophils # (Auto) 0.23 K/mcL (0.00-0.70); Eosinophils % (Auto) 3.1 % (0.0-7.0); Hematocrit 35.5 % (34.1-44.9); Hemoglobin 12.2 g/dL (11.2-15.7); Lymphocytes # (Auto) 3.63 K/mcL (1.50-4.80); Lymphocytes % (Auto) 49.3 % (15.5-49.0); Mean Cell Volume 93.9 fL (80.0-100.0); Mean Corpuscular HGB Conc 34.4 g/dL (31.0-36.0); Mean Platelet Volume 9.6 fL (8.8-12.5); Monocytes # (Auto) 0.51 K/mcL (0.10-0.90); Monocytes % (Auto) 6.9 % (1.0-12.0); Neutrophils % (Auto) 39.7 % (38.0-78.0); Platelet Count 230 K/mcL (140-440); RBC 3.78 M/mcL (3.59-5.38); Red Cell Distribution Width 12.5 % (11.5-14.5); WBC 7.4 K/mcL (4.5-11.0)
[2023-07-23 07:11] LABS: Blood Urea Nitrogen 4 mg/dL (6-20); Calcium 8.9 mg/dL (8.6-10.4); Carbon Dioxide 19 mmol/L (22-30); Chloride 107 mmol/L (96-108); Glomerular Filtration Rate 119; Glucose 93 mg/dL (70-105)
[2023-07-23] MEDS: ONDANSETRON 4 MG/2 ML VIAL IV PRN (10:23)
[2023-07-23] MEDS: LORazepam 0.5 MG TABLET PO PRN (12:23)
[2023-07-23] MEDS ORDERED: IOPAMIDOL 100 ML BOTTLE IV ONE (13:53)
[2023-07-23] MEDS: ACETAMINOPHEN 325 MG TABLET PO PRN (16:01)
[2023-07-23] MEDS: oxyCODONE IR 5 MG TABLET PO PRN (16:01)
[2023-07-24 06:25] LABS: Basophils # (Auto) 0.03 K/mcL (0.00-0.30); Basophils % (Auto) 0.4 % (0.0-2.0); Eosinophils # (Auto) 0.25 K/mcL (0.00-0.70); Eosinophils % (Auto) 3.7 % (0.0-7.0); Hematocrit 36.2 % (34.1-44.9); Hemoglobin 12.3 g/dL (11.2-15.7); Lymphocytes # (Auto) 3.38 K/mcL (1.50-4.80); Lymphocytes % (Auto) 49.5 % (15.5-49.0); Mean Platelet Volume 9.5 fL (8.8-12.5); Monocytes % (Auto) 7.3 % (1.0-12.0); Neutrophils % (Auto) 37.9 % (38.0-78.0); Platelet Count 248 K/mcL (140-440); RBC 3.81 M/mcL (3.59-5.38); Red Cell Distribution Width 12.3 % (11.5-14.5); WBC 6.8 K/mcL (4.5-11.0)
[2023-07-24 06:43] LABS: Blood Urea Nitrogen 5 mg/dL (6-20); Calcium 8.7 mg/dL (8.6-10.4); Carbon Dioxide 21 mmol/L (22-30); Chloride 106 mmol/L (96-108); Glomerular Filtration Rate 119; Glucose 96 mg/dL (70-105)
[2023-07-24] MEDS: ALBUTEROL SULFATE 60 PUFF INHALER INH PRN (10:29)
[2023-07-25 08:06] LABS: Basophils # (Auto) 0.03 K/mcL (0.00-0.30); Basophils % (Auto) 0.4 % (0.0-2.0); Eosinophils # (Auto) 0.24 K/mcL (0.00-0.70); Eosinophils % (Auto) 3.1 % (0.0-7.0); Hemoglobin 13.3 g/dL (11.2-15.7); Lymphocytes # (Auto) 3.39 K/mcL (1.50-4.80); Lymphocytes % (Auto) 43.9 % (15.5-49.0); Mean Cell Volume 95.1 fL (80.0-100.0); Mean Corpuscular HGB Conc 34.1 g/dL (31.0-36.0); Mean Platelet Volume 9.5 fL (8.8-12.5); Monocytes # (Auto) 0.61 K/mcL (0.10-0.90); Monocytes % (Auto) 7.9 % (1.0-12.0); Neutrophils % (Auto) 43.5 % (38.0-78.0); Platelet Count 245 K/mcL (140-440); Red Cell Distribution Width 12.4 % (11.5-14.5); WBC 7.7 K/mcL (4.5-11.0)
== END 2023-07-25 11:28 | disposition home or self-care (01) | DRG 872 ==
LOC: ED 16:47 → MEDSUR 21:29
PROVIDERS: ADMIT Student in an Organized Health Care Education/Training Program; ATTEND Student in an Organized Health Care Education/Training Program